=== PATIENT | male | born 1965 | race Caucasian/White ===

== ENCOUNTER 2018-08-22 15:44 | Outpatient (CLI) | payer OTHER ==
[2018-08-22 16:32] LABS: BASOPHILS % (AUTO) 0.3 % (0-1); EOSINOPHILS # (AUTO) 0.3 X10'3 (0-0.9); EOSINOPHILS % (AUTO) 4.7 % (0-6); HEMATOCRIT 46.2 % (42.0-52.0); HEMOGLOBIN 15.4 g/dl (14.0-17.9); LYMPHOCYTES # (AUTO) 1.9 X10'3 (1.1-4.8); LYMPHOCYTES % (AUTO) 26.1 % (21-51); MEAN CORPUSCULAR HEMOGLOBIN 27.5 PG (27.0-31.0); MEAN CORPUSCULAR HGB CONC 33.5 % (33.0-36.5); MEAN CORPUSCULAR VOLUME 82.3 FL (78-98); MEAN PLATELET VOLUME 7.3 FL (7.4-10.4); MONOCYTES # (AUTO) 0.6 X10'3 (0-0.9); NEUTROPHILS # (AUTO) 4.4 X10'3 (1.8-7.7); NEUTROPHILS % (AUTO) 60.9 % (42-75); PLATELET COUNT 264 X10'3 (140-440); RED BLOOD COUNT 5.61 X10'6 (4.70-6.10); WHITE BLOOD COUNT 7.2 X10'3 (4.5-11.0)
[2018-08-22 17:00] LABS: ALANINE AMINOTRANSFERASE 51 U/L (12-78); ALBUMIN 3.9 G/DL (3.4-5.0); ALBUMIN/GLOBULIN RATIO 1.1 (1.1-1.5); ALKALINE PHOSPHATASE 67 IU/L (46-116); ANION GAP 11 (8-16); ASPARTATE AMINO TRANSFERASE 27 U/L (10-37); BILIRUBIN,TOTAL 0.5 MG/DL (0.1-1.0); BLOOD UREA NITROGEN 17 MG/DL (7-18); BUN/CREATININE RATIO 14.2 (5.4-32.0); CHLORIDE 105 MMOL/L (99-107); CHOL/HDL RATIO 3.1 (0.00-4.99); CHOLESTEROL 137 MG/DL (0-200); GLUCOSE 98 MG/DL (70-104); HDL CHOLESTEROL 44 MG/DL (35-60); LDL CHOLESTEROL 83 MG/DL (50-100); POTASSIUM 4.1 MMOL/L (3.5-5.1); SODIUM 142 MMOL/L (135-145); TOTAL CARBON DIOXIDE 26.5 MMOL/L (24-32); TOTAL PROTEIN 7.3 G/DL (6.4-8.2); TRIGLYCERIDES 80 MG/DL (20-135); eGFR 63 ML/MIN
== END 2018-08-22 23:59 | disposition home or self-care (01) ==
LOC: LAB 15:44
PROVIDERS: ATTEND Family Medicine
DX: Z00.01 Encounter for general adult medical examination with abnormal findings (principal); I10 Essential (primary) hypertension; E78.5 Hyperlipidemia, unspecified; E03.9 Hypothyroidism, unspecified; J30.9 Allergic rhinitis, unspecified; N42.9 Disorder of prostate, unspecified; Z88.9 Allergy status to unspecified drugs, medicaments and biological substances
CPT/HCPCS: 36415; 80053; 80061; 84153; 84439; 84443; 85025

== ENCOUNTER 2019-08-28 14:27 | Outpatient (CLI) | payer OTHER ==
[2019-08-28 15:34] LABS: ALANINE AMINOTRANSFERASE 55 U/L (12-78); ALBUMIN/GLOBULIN RATIO 1.1 (1.1-1.5); ALKALINE PHOSPHATASE 72 IU/L (46-116); ANION GAP 11 (8-16); ASPARTATE AMINO TRANSFERASE 31 U/L (10-37); BILIRUBIN,TOTAL 0.6 MG/DL (0.1-1.0); BLOOD UREA NITROGEN 13 MG/DL (7-18); BUN/CREATININE RATIO 13.1 (5.4-32.0); CALCIUM 8.8 MG/DL (8.5-10.1); CHLORIDE 105 MMOL/L (99-107); CHOL/HDL RATIO 2.8 (0.00-4.99); CHOLESTEROL 128 MG/DL (0-200); CREATININE 0.99 MG/DL (0.60-1.10); GLUCOSE 94 MG/DL (70-104); HDL CHOLESTEROL 45 MG/DL (35-60); LDL CHOLESTEROL 78 MG/DL (50-100); POTASSIUM 4.1 MMOL/L (3.5-5.1); SODIUM 141 MMOL/L (135-145); TOTAL CARBON DIOXIDE 24.9 MMOL/L (24-32); TOTAL PROTEIN 7.6 G/DL (6.4-8.2); TRIGLYCERIDES 55 MG/DL (20-135); eGFR 79 ML/MIN
[2019-08-30 08:09] LABS: THYROXINE (T4) 7.5 ug/dL (4.5-12.0)
[2019-08-30 13:09] LABS: PSA, ULTRASENSITIVE W/O SERIAL 0.639 ng/mL (0.000-4.000)
== END 2019-08-28 23:59 | disposition home or self-care (01) ==
LOC: LAB 14:27
PROVIDERS: ATTEND Family Medicine
DX: I10 Essential (primary) hypertension (principal); E78.5 Hyperlipidemia, unspecified; N42.9 Disorder of prostate, unspecified; E03.9 Hypothyroidism, unspecified
CPT/HCPCS: 36415; 80053; 80061; 84153; 84436; 84439; 84443

== ENCOUNTER 2019-11-19 06:34 | Outpatient (CLI) | payer OTHER | END 2019-11-19 23:59 | disposition home or self-care (01) | LOC: RAD 06:34 | PROVIDERS: ATTEND Family Medicine | DX: M17.11 Unilateral primary osteoarthritis, right knee (principal); M76.9 Unspecified enthesopathy, lower limb, excluding foot | CPT/HCPCS: 73564 ==

== ENCOUNTER 2020-09-16 15:09 | Outpatient (CLI) | payer BC ==
[2020-09-16 16:31] LABS: BASOPHILS % (AUTO) 0.4 % (0-1); EOSINOPHILS # (AUTO) 0.3 X10'3 (0-0.9); EOSINOPHILS % (AUTO) 4.5 % (0-6); HEMOGLOBIN 15.3 g/dl (14.0-17.9); LYMPHOCYTES # (AUTO) 1.6 X10'3 (1.1-4.8); LYMPHOCYTES % (AUTO) 21.1 % (21-51); MEAN CORPUSCULAR HEMOGLOBIN 28.3 PG (27.0-31.0); MEAN CORPUSCULAR HGB CONC 33.9 g/dL (33.0-36.5); MEAN CORPUSCULAR VOLUME 83.5 FL (78-98); MEAN PLATELET VOLUME 7.4 FL (7.4-10.4); MONOCYTES # (AUTO) 0.6 X10'3 (0-0.9); MONOCYTES % (AUTO) 7.8 % (2-12); NEUTROPHILS # (AUTO) 4.9 X10'3 (1.8-7.7); NEUTROPHILS % (AUTO) 66.2 % (42-75); PLATELET COUNT 247 X10'3 (140-440); RED BLOOD COUNT 5.39 X10'6 (4.70-6.10); WHITE BLOOD COUNT 7.4 X10'3 (4.5-11.0)
[2020-09-16 16:33] LABS: HEMOGLOBIN A1C 5.8 % (4.5-6.2)
[2020-09-16 16:49] LABS: ALANINE AMINOTRANSFERASE 74 U/L (12-78); ALBUMIN/GLOBULIN RATIO 1.1 (1.1-1.5); ALKALINE PHOSPHATASE 76 IU/L (46-116); ANION GAP 8 (8-16); ASPARTATE AMINO TRANSFERASE 52 U/L (10-37); BILIRUBIN,TOTAL 0.4 MG/DL (0.1-1.0); BLOOD UREA NITROGEN 20 MG/DL (7-18); BUN/CREATININE RATIO 18.3 (5.4-32.0); CALCIUM 9.1 MG/DL (8.5-10.1); CHLORIDE 109 MMOL/L (99-107); CHOL/HDL RATIO 3.9 (0.00-4.99); CHOLESTEROL 146 MG/DL (0-200); CREATININE 1.09 MG/DL (0.60-1.10); GLUCOSE 109 MG/DL (70-104); HDL CHOLESTEROL 37 MG/DL (35-60); LDL CHOLESTEROL 92 MG/DL (50-100); POTASSIUM 4.1 MMOL/L (3.5-5.1); SODIUM 143 MMOL/L (135-145); TOTAL CARBON DIOXIDE 26.5 MMOL/L (24-32); TOTAL PROTEIN 7.5 G/DL (6.4-8.2); TRIGLYCERIDES 188 MG/DL (20-135); eGFR 70 ML/MIN
== END 2020-09-16 23:59 | disposition home or self-care (01) ==
LOC: LAB 15:09
PROVIDERS: ATTEND Family Medicine
DX: Z13.1 Encounter for screening for diabetes mellitus (principal); I10 Essential (primary) hypertension; E78.5 Hyperlipidemia, unspecified; N42.9 Disorder of prostate, unspecified; E03.9 Hypothyroidism, unspecified; M23.92 Unspecified internal derangement of left knee
CPT/HCPCS: 36415; 80053; 80061; 83036; 84153; 84439; 84443; 85025

== ENCOUNTER 2020-11-11 13:44 | Outpatient (CLI) | payer BC | END 2020-11-11 23:59 | disposition home or self-care (01) | LOC: RAD 13:44 | PROVIDERS: ATTEND Family Medicine | DX: S83.242A Other tear of medial meniscus, current injury, left knee, initial encounter (principal); M17.12 Unilateral primary osteoarthritis, left knee; M71.22 Synovial cyst of popliteal space [Baker], left knee; M23.42 Loose body in knee, left knee; M25.462 Effusion, left knee; M94.262 Chondromalacia, left knee; X58.XXXA Exposure to other specified factors, initial encounter; Y93.89 Activity, other specified; Y92.89 Other specified places as the place of occurrence of the external cause; Y99.8 Other external cause status; Z88.0 Allergy status to penicillin; Z91.030 Bee allergy status; Z91.040 Latex allergy status; Z91.010 Allergy to peanuts | CPT/HCPCS: 73721 ==

== ENCOUNTER 2021-08-26 14:34 | Outpatient (CLI) | payer BC ==
[2021-08-26 15:32] LABS: ALANINE AMINOTRANSFERASE 60 U/L (12-78); ALBUMIN 4.3 G/DL (3.4-5.0); ALBUMIN/GLOBULIN RATIO 1.3 (1.1-1.5); ALKALINE PHOSPHATASE 70 IU/L (46-116); ANION GAP 10 (8-16); ASPARTATE AMINO TRANSFERASE 38 U/L (10-37); BILIRUBIN,TOTAL 0.4 MG/DL (0.1-1.0); BLOOD UREA NITROGEN 20 MG/DL (7-18); BUN/CREATININE RATIO 20.2 (5.4-32.0); CALCIUM 8.8 MG/DL (8.5-10.1); CHLORIDE 109 MMOL/L (99-107); CHOL/HDL RATIO 4.7 (0.00-4.99); CHOLESTEROL 208 MG/DL (0-200); CREATININE 0.99 MG/DL (0.60-1.10); GLUCOSE 94 MG/DL (70-104); HDL CHOLESTEROL 44 MG/DL (35-60); LDL CHOLESTEROL 139 MG/DL (50-100); POTASSIUM 4.2 MMOL/L (3.5-5.1); SODIUM 144 MMOL/L (135-145); TOTAL CARBON DIOXIDE 25.1 MMOL/L (24-32); TOTAL PROTEIN 7.7 G/DL (6.4-8.2); TRIGLYCERIDES 159 MG/DL (20-135); eGFR 78 ML/MIN
[2021-08-26 16:32] LABS: HEMOGLOBIN A1C 5.8 % (4.5-6.2)
[2021-08-29 12:13] LABS: PSA, ULTRASENSITIVE W/O SERIAL 0.563 ng/mL (0.000-4.000); THIIODOTHRONINE, FREE, SERUM 3.1 pg/mL (2.0-4.4)
== END 2021-08-26 23:59 | disposition home or self-care (01) ==
LOC: LAB 14:34
PROVIDERS: ATTEND Family Medicine
DX: E78.5 Hyperlipidemia, unspecified (principal); I10 Essential (primary) hypertension; E03.9 Hypothyroidism, unspecified; N42.9 Disorder of prostate, unspecified; R73.9 Hyperglycemia, unspecified
CPT/HCPCS: 36415; 80053; 80061; 83036; 84153; 84439; 84443; 84481

== ENCOUNTER 2021-09-29 23:09 | Inpatient (IN) | payer BC ==
[~2021-09-29] VITALS: Ht 177.8 cm; Wt 83.1 kg
[2021-09-29] MEDS ORDERED: ondansetron/PF 4mg/2ml inj IV ONE (23:30)
[2021-09-29] MEDS ORDERED: normal saline 1000ml 1,000 ML IV ONE (23:30)
[2021-09-29] MEDS ORDERED: morphine 4 MG/ML inj SYRINge IV ONE (23:30)
[2021-09-29 23:46] LABS: BASOPHILS % (AUTO) 0.2 % (0-1); EOSINOPHILS % (AUTO) 0 % (0-6); HEMATOCRIT 47.4 % (42.0-52.0); LYMPHOCYTES % (AUTO) 5.5 % (21-51); MEAN CORPUSCULAR HEMOGLOBIN 27.7 PG (27.0-31.0); MEAN CORPUSCULAR HGB CONC 33.7 g/dL (33.0-36.5); MEAN CORPUSCULAR VOLUME 82.2 FL (78-98); MEAN PLATELET VOLUME 7.2 FL (7.4-10.4); MONOCYTES # (AUTO) 1.3 X10'3 (0-0.9); MONOCYTES % (AUTO) 7.2 % (2-12); NEUTROPHILS # (AUTO) 15.6 X10'3 (1.8-7.7); NEUTROPHILS % (AUTO) 87.1 % (42-75); PLATELET COUNT 289 X10'3 (140-440); RED BLOOD COUNT 5.77 X10'6 (4.70-6.10); RED CELL DISTRIBUTION WIDTH 13.5 % (11.5-14.5); WHITE BLOOD COUNT 17.9 X10'3 (4.5-11.0)
[2021-09-29 23:57] LABS: ALANINE AMINOTRANSFERASE 41 U/L (12-78); ALBUMIN 4.3 G/DL (3.4-5.0); ALBUMIN/GLOBULIN RATIO 1.2 (1.1-1.5); ALKALINE PHOSPHATASE 66 IU/L (46-116); ANION GAP 13 (8-16); ASPARTATE AMINO TRANSFERASE 21 U/L (10-37); BILIRUBIN,DIRECT 0.1 MG/DL (0-0.3); BILIRUBIN,TOTAL 0.4 MG/DL (0.1-1.0); BLOOD UREA NITROGEN 32 MG/DL (7-18); BUN/CREATININE RATIO 25.6 (5.4-32.0); CALCIUM 9.1 MG/DL (8.5-10.1); CHLORIDE 105 MMOL/L (99-107); CREATININE 1.25 MG/DL (0.60-1.10); GLUCOSE 144 MG/DL (70-104); LIPASE 52 U/L (73-393); POTASSIUM 4.2 MMOL/L (3.5-5.1); SODIUM 141 MMOL/L (135-145); TOTAL PROTEIN 7.8 G/DL (6.4-8.2); eGFR 60 ML/MIN
[2021-09-30] VITALS (18 sets, daily range): BP systolic 115–182; BP diastolic 54–100
[2021-09-30] MEDS ORDERED: ciprofloxacin lact 400MG/200ML 200 ML IV STA (00:03)
[2021-09-30] MEDS ORDERED: metroNIDAZOLE-Flagyl 500mg/NS 100 ML IV STA (00:03)
[2021-09-30] MEDS ORDERED: diatr meglu/diatrizoate 30ml oral sol.-(3 dose) bottle PO SCH ×2 (00:30→00:39)
[2021-09-30] MEDS ORDERED: LEVO112T52 PO (00:33)
[2021-09-30] MEDS ORDERED: ASPI81TA52 PO (00:33)
[2021-09-30] MEDS ORDERED: LOSA50TA64 PO (00:33)
[2021-09-30] MEDS ORDERED: ATOR20TA66 PO (00:33)
[2021-09-30] MEDS ORDERED: morphine 4 MG/ML inj SYRINge IV ONE (00:45)
[2021-09-30] MEDS ORDERED: acetaminophen 325mg tablet PO PRN (01:05)
[2021-09-30] MEDS ORDERED: magnesium 2GM in 50ml NS 50 ML IV PRN (01:05)
[2021-09-30] MEDS ORDERED: potassium CL 10mEq/100ml bag 100 ML IV PRN (01:05)
[2021-09-30] MEDS ORDERED: magnesium 4gm in 100ml NS 100 ML IV PRN (01:05)
[2021-09-30] MEDS ORDERED: diphenhydrAMINE 50 mg/ml inj IV ONE (01:10)
[2021-09-30] MEDS: normal saline 1000ml 1,000 ML IV SCH ×3 (01:18→22:04)
[2021-09-30 01:42] LABS: MAGNESIUM 2.3 MG/DL (1.5-2.4); POTASSIUM 4.9 MMOL/L (3.5-5.1)
[2021-09-30] MEDS: diatr meglu/diatrizoate 30ml oral sol.-(3 dose) bottle PO SCH ×3 (03:17→09:23)
[2021-09-30] MEDS: morphine 2 MG/ML inj. syringe IV PRN ×2 (03:18→10:06)
--- NOTE | 2021-09-30 05:55 | NUR ---
Pt was bladder scanned had 310cc in bladder after voiding 600cc. Spoke with Dr. Min who ordered one time dose of Flomax.
[2021-09-30 06:29] LABS: CLARITY,URINE CLEAR (Clear); COLOR,URINE YELLOW (Yellow); GLUCOSE, URINE NEGATIVE (Neg); KETONES,URINE NEGATIVE (Neg); LEUKOCYTE ESTERASE ,URINE NEGATIVE (Neg); NITRITES, URINE NEGATIVE (Neg); OCCULT BLOOD,URINE NEGATIVE (Neg); PROTEIN,URINE NEGATIVE (Neg); UROBILINOGEN,URINE 0.2 E.U/dL (0.2-1.0)
[2021-09-30] MEDS ORDERED: tamsulosin 0.4mg capsule PO ONE (06:30)
[2021-09-30 06:31] LABS: UA COLLECTION TYPE VOIDED
--- NOTE | 2021-09-30 06:40 | NUR ---
Problems reprioritized. Patient report given, questions answered & plan of care reviewed with FIDELIA Horner.
[2021-09-30] MEDS: ciprofloxacin lact 400MG/200ML 200 ML IV SCH ×2 (07:23→22:04)
[2021-09-30] MEDS: K and/or MAG REPLACEMENT MC SCH ×2 (08:00→20:00)
[2021-09-30] MEDS ORDERED: levoTHYROXINE 112mcg tablet PO SCH (08:00)
[2021-09-30] MEDS: metroNIDAZOLE-Flagyl 500mg/NS 100 ML IV SCH ×2 (09:21→16:00)
[2021-09-30] MEDS ORDERED: iohexol 300mg/ml 100ml inj. ONE (09:52)
[2021-09-30 11:01] LABS: BASOPHILS % (AUTO) 0.2 % (0-1); EOSINOPHILS % (AUTO) 0 % (0-6); HEMATOCRIT 43.1 % (42.0-52.0); HEMOGLOBIN 14.5 g/dl (14.0-17.9); LYMPHOCYTES # (AUTO) 0.7 X10'3 (1.1-4.8); LYMPHOCYTES % (AUTO) 4.9 % (21-51); MEAN CORPUSCULAR HEMOGLOBIN 27.8 PG (27.0-31.0); MEAN CORPUSCULAR HGB CONC 33.7 g/dL (33.0-36.5); MEAN CORPUSCULAR VOLUME 82.4 FL (78-98); MEAN PLATELET VOLUME 7.2 FL (7.4-10.4); MONOCYTES # (AUTO) 0.8 X10'3 (0-0.9); MONOCYTES % (AUTO) 5.9 % (2-12); NEUTROPHILS # (AUTO) 12.2 X10'3 (1.8-7.7); PLATELET COUNT 247 X10'3 (140-440); RED BLOOD COUNT 5.23 X10'6 (4.70-6.10); RED CELL DISTRIBUTION WIDTH 13.7 % (11.5-14.5); WHITE BLOOD COUNT 13.7 X10'3 (4.5-11.0)
[2021-09-30 11:11] LABS: APTT 28 SECONDS (22-32)
[2021-09-30 11:19] LABS: ALANINE AMINOTRANSFERASE 38 U/L (12-78); ALBUMIN 3.4 G/DL (3.4-5.0); ALBUMIN/GLOBULIN RATIO 1.1 (1.1-1.5); ALKALINE PHOSPHATASE 47 IU/L (46-116); ANION GAP 9 (8-16); ASPARTATE AMINO TRANSFERASE 16 U/L (10-37); BLOOD UREA NITROGEN 23 MG/DL (7-18); BUN/CREATININE RATIO 21.7 (5.4-32.0); CALCIUM 8.1 MG/DL (8.5-10.1); CHLORIDE 102 MMOL/L (99-107); CREATININE 1.06 MG/DL (0.60-1.10); GLUCOSE 129 MG/DL (70-104); POTASSIUM 4.1 MMOL/L (3.5-5.1); SODIUM 136 MMOL/L (135-145); TOTAL CARBON DIOXIDE 24.7 MMOL/L (24-32); TOTAL PROTEIN 6.6 G/DL (6.4-8.2); eGFR 72 ML/MIN
--- NOTE | 2021-09-30 11:47 | NUR ---
PAGER ID: [phone] MESSAGE: Tena Brink [id number] FYI Pt has been tacky -111 this am at rest with irregular hr. Did you want on tele? Please address med re.- her afib meds on there. Siri [phone] Addendum: 09/30/21 at 1147 by Siri Wilson RN INcorrect pt.
[2021-09-30] MEDS ORDERED: midazolam 1 mg/ML 2ml injection ONE (14:05)
[2021-09-30] MEDS ORDERED: fentaNYL /PF 50mcg/ml 5ml ampule ONE (14:07)
[2021-09-30] MEDS ORDERED: famotidine/PF 10 mg/ml inj IV ONE (14:23)
[2021-09-30] MEDS ORDERED: ringers solution, lacted 1,000 ML IV SCH (14:25)
[2021-09-30] MEDS ORDERED: ondansetron/PF 4mg/2ml inj IV PRN (14:25)
[2021-09-30] MEDS ORDERED: acetaminophen 1,000mg/100ml IV 100 ML IV PRN (14:25)
[2021-09-30] MEDS ORDERED: meperidine/PF 25mg/ml syringe IV PRN ×3 (14:25)
[2021-09-30] MEDS ORDERED: proCHLORperazine 10 MG/2 ml inj IV PRN (14:25)
[2021-09-30] MEDS ORDERED: labetalol 20mg/4ml (5mg/ml) syringe IV PRN (14:25)
[2021-09-30] MEDS ORDERED: morphine 4 MG/ML inj SYRINge IV PRN (14:25)
[2021-09-30] MEDS ORDERED: hydrALAZINE 20mg/ml inj. IV PRN (14:25)
--- NOTE | 2021-09-30 14:29 | NUR ---
Pt. taken to OR while primary RN in other pt. room. Charge took BG. WNL.
[2021-09-30] MEDS ORDERED: sevoflurane 250ml liquid IH ONE (14:32)
[2021-09-30] MEDS ORDERED: propofol inj 20 ML IV ONE (15:28)
[2021-09-30] MEDS ORDERED: rocuronium 10mg/ml inj IV ONE ×3 (15:28→17:57)
[2021-09-30] MEDS ORDERED: LIDOcaine 2% (20mg/ml) 5ml vial ONE (15:28)
[2021-09-30] MEDS ORDERED: dexamethasone sod phosphate 4mg/ml inj. ONE (15:29)
[2021-09-30] MEDS ORDERED: ondansetron/PF 4mg/2ml inj ONE (15:29)
[2021-09-30] MEDS ORDERED: BUPIVAcaine/PF 2.5mg/ml (0.25%) 10ml vial ONE (15:45)
[2021-09-30] MEDS ORDERED: BUPIVACAINE liposomal/PF 13.3 MG/ML vial IM ONE (15:45)
[2021-09-30] MEDS ORDERED: morphine 10mg/ml inj. ONE ×2 (17:33→18:50)
[2021-09-30] MEDS ORDERED: phenylephrine 10mg/ml inj. ONE (17:56)
[2021-09-30] MEDS ORDERED: 0.9 % SODIUM CHLORIDE 10 ML VIAL ONE (17:57)
[2021-09-30] MEDS ORDERED: albumin (Human) 5% 250ml 250 ML IV ONE (18:10)
--- NOTE | 2021-09-30 18:23 | NUR ---
Gave report to Belinda MISTRY.
[2021-09-30] MEDS ORDERED: sugammadex 200mg/2ml injection IV ONE (18:34)
--- NOTE | 2021-09-30 19:08 | NUR ---
Received from OR via SURGICAL BED , accompanied by Anesthesiologist DR THOMPSON and report given by Anesthesiolgist. PT SLEEPY. DRSG TO ABD CDI. DEVIN DRAIN W/ SS DRAINAGE. ART LINE TO RIGHT WRIST. TRIPLE LUMEN CENTRAL LINE TO RIGHT NECK. SCDS ON. NG TUBE TO LOW INT SUCTION. VSS
--- NOTE | 2021-09-30 19:30 | NUR ---
CXR COMPLETED. ABGS DRAWN. DR ALVAREZ AT BEDSIDE. PT AROUSABLE AT THIS TIME.
[2021-09-30 19:38] LABS: ABG BASE EXCESS -6.7 mmol/L (-2.0-2.0); ABG HCO3 19.2 mmol/L (22.0-26.0); ABG OXYGEN SATURATION 94.2 % (94-97); ABG PCO2 (T) 39.7 mmHg (35.0-48.0); ABG PO2 (T) 75.6 mmHg (75.0-100.0); FCOHb 0.7 % (0.0-3.9); FMetHb 0.4 % (0.0-1.5); FO2Hb 93.2 % (94-97); TOTAL HEMOGLOBIN 15.3 G/dl (14.0-18.0)
--- NOTE | 2021-09-30 19:55 | NUR ---
PT AWAKE, DENIES PAIN AND NAUSEA. MAKES OCCASIONAL JOKES AND IS VERY THANKFUL FOR HIS CARE. ALEKSANDRA MATA, TANNER CDI. NG TO LOW INT SUCTION W/ APPROX 100 OUT SO FAR IN PACU.
--- NOTE | 2021-09-30 20:48 | NUR ---
PT TO 2014 VIA SURGICAL BED. TRANSFERRED TO ICU BED VIA SLIDE BOARD. PT TOLERATED WELL. PT REMAINS ALERT AND ORIENTED AND VSS. ABD SOFT, DRSG CDI. NG HAS APPROX 50 CC BROWN DRAINAGE. REPORT GIVEN TO ISHMAEL MISTRY. PT AT BEDSIDE, BOTH ARE SO THANKFUL FOR THEIR CARE AND STATES READINESS FOR XFER TO UNIT. PT WAS TRANSFERRED SAFELY, DENIES ANY NEEDS AT THIS TIME.
--- NOTE | 2021-09-30 20:50 | NUR ---
Received pt from OR. A&O x4, saturation 96% on room air, Surgical dressing dry and intact.
[2021-09-30] MEDS ORDERED: Chloraseptic (Phenol) Spray 177ml MM PRN (21:35)
[2021-10-01] VITALS (14 sets, daily range): BP systolic 120–154; BP diastolic 57–83
[2021-10-01] MEDS: metroNIDAZOLE-Flagyl 500mg/NS 100 ML IV SCH ×3 (00:42→16:00)
[2021-10-01] MEDS: morphine 2 MG/ML inj. syringe IV PRN ×4 (00:55→21:51)
[2021-10-01] MEDS: normal saline 1000ml 1,000 ML IV SCH ×3 (01:14→21:35)
[2021-10-01 02:52] LABS: BASOPHILS % (AUTO) 0.1 % (0-1); EOSINOPHILS % (AUTO) 0 % (0-6); HEMATOCRIT 42.8 % (42.0-52.0); HEMOGLOBIN 14.4 g/dl (14.0-17.9); LYMPHOCYTES # (AUTO) 0.6 X10'3 (1.1-4.8); MEAN CORPUSCULAR HEMOGLOBIN 27.9 PG (27.0-31.0); MEAN CORPUSCULAR HGB CONC 33.7 g/dL (33.0-36.5); MEAN CORPUSCULAR VOLUME 82.9 FL (78-98); MEAN PLATELET VOLUME 7.6 FL (7.4-10.4); MONOCYTES # (AUTO) 0.6 X10'3 (0-0.9); MONOCYTES % (AUTO) 5.3 % (2-12); NEUTROPHILS # (AUTO) 9.5 X10'3 (1.8-7.7); NEUTROPHILS % (AUTO) 88.6 % (42-75); PLATELET COUNT 203 X10'3 (140-440); RED BLOOD COUNT 5.16 X10'6 (4.70-6.10); RED CELL DISTRIBUTION WIDTH 13.7 % (11.5-14.5); WHITE BLOOD COUNT 10.7 X10'3 (4.5-11.0)
[2021-10-01 03:07] LABS: ALANINE AMINOTRANSFERASE 28 U/L (12-78); ALBUMIN 2.9 G/DL (3.4-5.0); ALKALINE PHOSPHATASE 37 IU/L (46-116); ANION GAP 11 (8-16); ASPARTATE AMINO TRANSFERASE 14 U/L (10-37); BILIRUBIN,TOTAL 0.7 MG/DL (0.1-1.0); BLOOD UREA NITROGEN 16 MG/DL (7-18); BUN/CREATININE RATIO 19.3 (5.4-32.0); CALCIUM 7.8 MG/DL (8.5-10.1); CHLORIDE 104 MMOL/L (99-107); CREATININE 0.83 MG/DL (0.60-1.10); GLUCOSE 133 MG/DL (70-104); POTASSIUM 4.3 MMOL/L (3.5-5.1); SODIUM 138 MMOL/L (135-145); TOTAL CARBON DIOXIDE 22.8 MMOL/L (24-32); TOTAL PROTEIN 5.9 G/DL (6.4-8.2); eGFR > 90 ML/MIN
--- NOTE | 2021-10-01 06:15 | NUR ---
Patient in room CICU 2013. I have received report from Jessica MISTRY and had the opportunity to ask questions and assume patient care. Pt appears comfortable and sleeping.
[2021-10-01] MEDS: K and/or MAG REPLACEMENT MC SCH ×2 (08:14→20:00)
[2021-10-01] MEDS: levoTHYROXINE sod inj. 100mcg/5 ml vial IV SCH (09:00)
[2021-10-01] MEDS: ciprofloxacin lact 400MG/200ML 200 ML IV SCH ×2 (09:34→22:20)
--- NOTE | 2021-10-01 10:16 | NUR ---
Family & daughter to see. Pain med improved his comfort level. IS provided.
--- NOTE | 2021-10-01 15:32 | NUR ---
MD Visit Dr. Vargas to see pt. Reviewed surgical procedure and said dressing could be changed & packing removed, CL out and art line off. All of those completed, pt tolerated dressing change well. Incision was well approximated, no s/s infection or drainage. 4x4s and ABDs reapplied per pt request. It makes a good pad to hold when he coughs. Art and IJ removed w/out incident & cath tips in tact on both. MS given prior to dressing change.
--- NOTE | 2021-10-01 16:30 | NUR ---
Transfer Pt transferred to [facility] with phone, cord and ear buds. and daughter accompanied us on this transfer. Urinary catheter removed prior to transfer, pt tolerated it well. Transferred in chair, on monitor. Pt requested to be left in chair on ACCE. Reported off to RN there.
--- NOTE | 2021-10-01 18:36 | NUR ---
Problems reprioritized. Patient report given, questions answered & plan of care reviewed with GISEL MISTRY.
[2021-10-01] MEDS: enoxaparin 40mg/0.4ml syringe SUBCUT SCH (21:34)
[2021-10-01] MEDS: ondansetron/PF 4mg/2ml inj IV PRN (21:35)
[2021-10-01] MEDS ORDERED: normal saline 500ml IV soln 500 ML IV ONE (22:00)
[2021-10-01] MEDS ORDERED: pantoprazole 40MG/NS 100ML BAG 100 ML IV ONE (22:05)
[2021-10-02] MEDS: metroNIDAZOLE-Flagyl 500mg/NS 100 ML IV SCH ×3 (00:57→15:34)
[2021-10-02] MEDS: morphine 2 MG/ML inj. syringe IV PRN ×3 (03:11→22:37)
[2021-10-02 05:00] VITALS: BP 131/75
[2021-10-02 06:33] LABS: ALANINE AMINOTRANSFERASE 28 U/L (12-78); ALBUMIN 2.6 G/DL (3.4-5.0); ALBUMIN/GLOBULIN RATIO 0.8 (1.1-1.5); ALKALINE PHOSPHATASE 37 IU/L (46-116); ANION GAP 9 (8-16); ASPARTATE AMINO TRANSFERASE 15 U/L (10-37); BILIRUBIN,TOTAL 0.5 MG/DL (0.1-1.0); BLOOD UREA NITROGEN 20 MG/DL (7-18); BUN/CREATININE RATIO 24.1 (5.4-32.0); CALCIUM 8.1 MG/DL (8.5-10.1); CHLORIDE 104 MMOL/L (99-107); CREATININE 0.83 MG/DL (0.60-1.10); GLUCOSE 114 MG/DL (70-104); POTASSIUM 3.8 MMOL/L (3.5-5.1); SODIUM 138 MMOL/L (135-145); TOTAL CARBON DIOXIDE 25.1 MMOL/L (24-32); TOTAL PROTEIN 5.9 G/DL (6.4-8.2); eGFR > 90 ML/MIN
[2021-10-02 07:00] VITALS: BP 143/90
[2021-10-02] MEDS: normal saline 1000ml 1,000 ML IV SCH ×2 (07:28→17:07)
[2021-10-02 07:49] LABS: BASOPHILS % (AUTO) 0.1 % (0-1); EOSINOPHILS % (AUTO) 0 % (0-6); HEMATOCRIT 40.3 % (42.0-52.0); HEMOGLOBIN 13.3 g/dl (14.0-17.9); LYMPHOCYTES # (AUTO) 0.8 X10'3 (1.1-4.8); LYMPHOCYTES % (AUTO) 7.9 % (21-51); MEAN CORPUSCULAR HEMOGLOBIN 27.9 PG (27.0-31.0); MEAN CORPUSCULAR HGB CONC 33.1 g/dL (33.0-36.5); MEAN CORPUSCULAR VOLUME 84.1 FL (78-98); MEAN PLATELET VOLUME 8.1 FL (7.4-10.4); MONOCYTES # (AUTO) 0.7 X10'3 (0-0.9); MONOCYTES % (AUTO) 6.9 % (2-12); NEUTROPHILS # (AUTO) 8.4 X10'3 (1.8-7.7); NEUTROPHILS % (AUTO) 85.1 % (42-75); PLATELET COUNT 195 X10'3 (140-440); RED BLOOD COUNT 4.79 X10'6 (4.70-6.10); RED CELL DISTRIBUTION WIDTH 13.8 % (11.5-14.5); WHITE BLOOD COUNT 9.9 X10'3 (4.5-11.0)
[2021-10-02] MEDS: K and/or MAG REPLACEMENT MC SCH ×2 (08:00→20:00)
[2021-10-02] MEDS: ciprofloxacin lact 400MG/200ML 200 ML IV SCH ×2 (08:53→22:33)
[2021-10-02] MEDS: levoTHYROXINE sod inj. 100mcg/5 ml vial IV SCH (09:23)
[2021-10-02 11:00] VITALS: BP 144/89
[2021-10-02] MEDS: enoxaparin 40mg/0.4ml syringe SUBCUT SCH (22:34)
[2021-10-02] MEDS: ondansetron/PF 4mg/2ml inj IV PRN (22:37)
[2021-10-03 02:00] VITALS: BP 141/70
[2021-10-03] MEDS: normal saline 1000ml 1,000 ML IV SCH ×2 (03:16→13:14)
[2021-10-03 07:00] VITALS: BP 154/95
--- NOTE | 2021-10-03 07:47 | NUR ---
Received report from charge machine operatorFIDELIA Jenkins regarding patient. Patient awake in bed and in no acute distress.
[2021-10-03] MEDS: K and/or MAG REPLACEMENT MC SCH ×2 (08:00→19:47)
[2021-10-03] MEDS: ciprofloxacin lact 400MG/200ML 200 ML IV SCH (08:02)
[2021-10-03] MEDS: levoTHYROXINE sod inj. 100mcg/5 ml vial IV SCH (08:03)
[2021-10-03 08:29] LABS: ALANINE AMINOTRANSFERASE 31 U/L (12-78); ALBUMIN 2.7 G/DL (3.4-5.0); ALBUMIN/GLOBULIN RATIO 0.7 (1.1-1.5); ALKALINE PHOSPHATASE 50 IU/L (46-116); ANION GAP 13 (8-16); ASPARTATE AMINO TRANSFERASE 25 U/L (10-37); BILIRUBIN,TOTAL 0.6 MG/DL (0.1-1.0); BLOOD UREA NITROGEN 20 MG/DL (7-18); BUN/CREATININE RATIO 26.7 (5.4-32.0); CALCIUM 8.3 MG/DL (8.5-10.1); CHLORIDE 107 MMOL/L (99-107); CREATININE 0.75 MG/DL (0.60-1.10); GLUCOSE 77 MG/DL (70-104); SODIUM 140 MMOL/L (135-145); TOTAL CARBON DIOXIDE 19.7 MMOL/L (24-32); TOTAL PROTEIN 6.4 G/DL (6.4-8.2); eGFR > 90 ML/MIN
[2021-10-03] MEDS: morphine 2 MG/ML inj. syringe IV PRN ×3 (09:32→20:29)
[2021-10-03 11:00] VITALS: BP 141/91
--- NOTE | 2021-10-03 11:20 | NUR ---
Orders for PICC line, TPN and dietary consult put in per Dr. Vargas.
--- NOTE | 2021-10-03 11:22 | NUR ---
Paged the PICC nurse regarding placement for a PICC line.
[2021-10-03] MEDS ORDERED: COVID-19 VACC, MRNA(PFIZER)/PF--BNT162b2 syringe IMVAC ONE (12:00)
[2021-10-03] MEDS ORDERED: magnesium 2GM in 50ml NS 50 ML IV PRN (13:35)
[2021-10-03] MEDS ORDERED: magnesium Cl slow-release 64mg tablet PO PRN (13:35)
[2021-10-03] MEDS ORDERED: Dextrose 10%-water IV solution 1,000 ML IV PRN (13:35)
[2021-10-03] MEDS ORDERED: magnesium 4gm in 100ml NS 100 ML IV PRN (13:35)
[2021-10-03] MEDS ORDERED: potassium Cl 40MEQ/1/2NS 520ml 520 ML IV PRN (13:40)
[2021-10-03] MEDS ORDERED: potassium Cl 20 mEq SR tablet PO PRN ×2 (13:40)
[2021-10-03] MEDS ORDERED: potassium CL 10mEq/100ml bag 100 ML IV PRN (13:40)
--- NOTE | 2021-10-03 13:51 | NUR ---
Initial: Pt admitted w/ increasing abd pain after meal, found to have SBO w/ peritonitis per EMR, also w/ sepsis. Pt underwent exploratory laparotomy with lysis of adhesion, sigmoid resection with primary anastomosis 09/30. Per MD, w/ persistent ileus, will need TPN. See recs below, d/w pharmacist. Pending PICC placement at this time. LBM 09/29. Will continue to monitor and adjust needs as medically indicated. Recs: 1. Continuous TPN per MD using 2:1 Clinimix-E /15 at 115ml/hr goal w/ additional 100 mL 20% intralipids to run at 8.33 mL/hr for 12 hrs/day. In total to provide 2860ml volume/day, 2159kcals, 138g AA, 414g Dex (2.19mg/kg/min GIR) 2. PALB and TG Q / 3. Daily scaled wts 4. Bowel care per MD Addendum: 10/03/21 at [address] Amended: Links added.
--- NOTE | 2021-10-03 14:53 | NUR ---
Problems reprioritized. Patient report given, questions answered & plan of care reviewed with FIDELIA Katz. Patient stable at transfer of care.
--- NOTE | 2021-10-03 14:56 | NUR ---
Patient in room MED 311. I have received report from FIDELIA Bae and had the opportunity to ask questions and assume patient care.
[2021-10-03 15:00] VITALS: BP 149/97
--- NOTE | 2021-10-03 15:09 | NUR ---
I agree with Kathia's assessment
[2021-10-03] MEDS: dextrose 5%-water 1,000 ML IV SCH (16:26)
[2021-10-03] MEDS: metroNIDAZOLE-Flagyl 500mg/NS 100 ML IV SCH (16:31)
[2021-10-03 18:00] VITALS: BP 147/98
--- NOTE | 2021-10-03 18:28 | NUR ---
Problems reprioritized. Patient report given, questions answered & plan of care reviewed with FIDELIA Bradley.
--- NOTE | 2021-10-03 18:30 | NUR ---
Patient in room MED 311. I have received report from Gianna MISTRY and had the opportunity to ask questions and assume patient care.
[2021-10-03] MEDS: enoxaparin 40mg/0.4ml syringe SUBCUT SCH (20:37)
[2021-10-03 22:15] VITALS: BP 141/89
[2021-10-04] MEDS: metroNIDAZOLE-Flagyl 500mg/NS 100 ML IV SCH ×3 (00:14→16:01)
[2021-10-04 02:00] VITALS: BP 166/95
[2021-10-04] MEDS: dextrose 5%-water 1,000 ML IV SCH ×3 (02:00→21:26)
[2021-10-04] MEDS: morphine 2 MG/ML inj. syringe IV PRN ×4 (02:51→20:59)
[2021-10-04] MEDS ORDERED: normal saline 500ml IV soln 500 ML IV ONE (05:45)
[2021-10-04 06:18] LABS: BASOPHILS % (AUTO) 0.2 % (0-1); EOSINOPHILS # (AUTO) 0.1 X10'3 (0-0.9); EOSINOPHILS % (AUTO) 0.5 % (0-6); HEMOGLOBIN 14.4 g/dl (14.0-17.9); LYMPHOCYTES # (AUTO) 1.2 X10'3 (1.1-4.8); LYMPHOCYTES % (AUTO) 11.2 % (21-51); MEAN CORPUSCULAR HEMOGLOBIN 27.8 PG (27.0-31.0); MEAN CORPUSCULAR HGB CONC 33.4 g/dL (33.0-36.5); MEAN CORPUSCULAR VOLUME 83.2 FL (78-98); MEAN PLATELET VOLUME 7.2 FL (7.4-10.4); MONOCYTES # (AUTO) 1.1 X10'3 (0-0.9); MONOCYTES % (AUTO) 9.9 % (2-12); NEUTROPHILS # (AUTO) 8.4 X10'3 (1.8-7.7); NEUTROPHILS % (AUTO) 78.2 % (42-75); PLATELET COUNT 260 X10'3 (140-440); RED BLOOD COUNT 5.17 X10'6 (4.70-6.10); RED CELL DISTRIBUTION WIDTH 13.3 % (11.5-14.5); WHITE BLOOD COUNT 10.7 X10'3 (4.5-11.0)
[2021-10-04 06:27] LABS: ALANINE AMINOTRANSFERASE 37 U/L (12-78); ALBUMIN 2.6 G/DL (3.4-5.0); ALBUMIN/GLOBULIN RATIO 0.7 (1.1-1.5); ALKALINE PHOSPHATASE 47 IU/L (46-116); ANION GAP 7 (8-16); ASPARTATE AMINO TRANSFERASE 27 U/L (10-37); BILIRUBIN,TOTAL 0.7 MG/DL (0.1-1.0); BLOOD UREA NITROGEN 18 MG/DL (7-18); BUN/CREATININE RATIO 23.1 (5.4-32.0); CALCIUM 8.4 MG/DL (8.5-10.1); CHLORIDE 104 MMOL/L (99-107); CREATININE 0.78 MG/DL (0.60-1.10); GLUCOSE 116 MG/DL (70-104); MAGNESIUM 2.3 MG/DL (1.5-2.4); PHOSPHORUS 2.9 MG/DL (2.3-4.5); POTASSIUM 3.5 MMOL/L (3.5-5.1); PREALBUMIN 20.2 MG/DL (19-36); SODIUM 137 MMOL/L (135-145); TOTAL CARBON DIOXIDE 26.3 MMOL/L (24-32); TOTAL PROTEIN 6.2 G/DL (6.4-8.2); TRIGLYCERIDES 102 MG/DL (20-135); eGFR > 90 ML/MIN
--- NOTE | 2021-10-04 06:39 | NUR ---
Problems reprioritized. Patient report given, questions answered & plan of care reviewed with Nilam MISTRY.
--- NOTE | 2021-10-04 06:55 | NUR ---
Patient in room MED 311. I have received report from FIDELIA ALTAMIRANO and had the opportunity to ask questions and assume patient care.
[2021-10-04] MEDS: K and/or MAG REPLACEMENT MC SCH ×2 (07:08→20:00)
[2021-10-04] MEDS: levoTHYROXINE sod inj. 100mcg/5 ml vial IV SCH (07:44)
[2021-10-04] MEDS: levoFLOXACIN-Levaquin 500mg/D5 100 ML IV SCH (07:55)
[2021-10-04 08:00] VITALS: BP 159/95
[2021-10-04] MEDS ORDERED: Dextrose 10%-water IV solution 1,000 ML IV PRN (13:30)
--- NOTE | 2021-10-04 13:35 | NUR ---
TPN consult: PICC placed, see recs below, have been d/w pharmacist. Addendum: 10/04/21 at [address] Amended: Links added.
--- NOTE | 2021-10-04 14:10 | NUR ---
TPN consult: TC from Pharmacist stating that no lipids w/ TPN at this time d/t potential allergic reaction. Updated recs below. Recs: 1. Continuous TPN per MD using 2:1 Clinimix-E 02/24 at 110ml/hr goal w/ no additional lipids per MD. In total to provide 2640ml volume/day, 2323kcals, 132g AA, 528g Dex (4.20 mg/kg/min GIR) 2. PALB and TG Q / 3. Daily scaled wts 4. Bowel care per MD Addendum: 10/04/21 at [address] Amended: Links added.
[2021-10-04 18:00] VITALS: BP 142/78
--- NOTE | 2021-10-04 18:31 | NUR ---
Problems reprioritized. Patient report given, questions answered & plan of care reviewed with FIDELIA NAJERA.
[2021-10-04] MEDS ORDERED: ZINC/COPPER/MANGANESE/SELENIUM 0.5 ML, chromic chloride inj. 5 MCG in AA 5%/cal/electro... IV SCH (19:00)
[2021-10-04] MEDS ORDERED: ZINC/COPPER/MANGANESE/SELENIUM 0.5 ML, chromic chloride inj. 5 MCG in AA 5%/CALCIUM/LYT... IV SCH (19:00)
[2021-10-04] MEDS: enoxaparin 40mg/0.4ml syringe SUBCUT SCH (20:00)
[2021-10-04 22:00] VITALS: BP 156/87
[2021-10-05] MEDS: metoclopramide 5 mg/ml inj IV SCH ×4 (05:31→20:27)
[2021-10-05] MEDS: metroNIDAZOLE-Flagyl 500mg/NS 100 ML IV SCH ×4 (05:42→23:44)
--- NOTE | 2021-10-05 06:48 | NUR ---
Problems reprioritized. Patient report given, questions answered & plan of care reviewed with
[2021-10-05] MEDS: K and/or MAG REPLACEMENT MC SCH ×2 (08:00→20:00)
[2021-10-05] MEDS: morphine 2 MG/ML inj. syringe IV PRN ×2 (09:10→21:17)
[2021-10-05] MEDS: levoTHYROXINE sod inj. 100mcg/5 ml vial IV SCH (09:13)
[2021-10-05] MEDS: dextrose 5%-water 1,000 ML IV SCH (09:29)
[2021-10-05] MEDS: levoFLOXACIN-Levaquin 500mg/D5 100 ML IV SCH (10:36)
[2021-10-05 11:00] VITALS: BP 128/82
[2021-10-05 11:26] LABS: ALANINE AMINOTRANSFERASE 57 U/L (12-78); ALBUMIN/GLOBULIN RATIO 0.9 (1.1-1.5); ALKALINE PHOSPHATASE 58 IU/L (46-116); ANION GAP 10 (8-16); ASPARTATE AMINO TRANSFERASE 40 U/L (10-37); BILIRUBIN,TOTAL 0.7 MG/DL (0.1-1.0); BLOOD UREA NITROGEN 20 MG/DL (7-18); BUN/CREATININE RATIO 23.3 (5.4-32.0); CHLORIDE 101 MMOL/L (99-107); CREATININE 0.86 MG/DL (0.60-1.10); GLUCOSE 124 MG/DL (70-104); MAGNESIUM 2.3 MG/DL (1.5-2.4); PHOSPHORUS 3.2 MG/DL (2.3-4.5); SODIUM 137 MMOL/L (135-145); TOTAL CARBON DIOXIDE 25.8 MMOL/L (24-32); TOTAL PROTEIN 6.4 G/DL (6.4-8.2); eGFR > 90 ML/MIN
[2021-10-05 11:32] LABS: POTASSIUM 3.3 MMOL/L (3.5-5.1)
--- NOTE | 2021-10-05 11:32 | NUR ---
Reassessment: Pt has been started on TPN and is advancing to goal rate per protocol. Per MD note, pt has not passed gas yet, to be started on reglan. NGT in place on low/intermittent suction w/ 400ml brown output 10/04 per EMR. LBM 09/29. Will continue to monitor and adjust needs as medically indicated. Recs: 1. Continuous TPN per MD using 2:1 Clinimix-E 02/24 at 110ml/hr goal w/ no additional lipids per MD. In total to provide 2640ml volume/day, 2323kcals, 132g AA, 528g Dex (4.20 mg/kg/min GIR) 2. PALB and TG Q 3. Daily scaled wts 4. Bowel care per MD Addendum: 10/05/21 at [address] Amended: Links added.
[2021-10-05 12:23] LABS: BASOPHILS % (AUTO) 0.3 % (0-1); EOSINOPHILS # (AUTO) 0.1 X10'3 (0-0.9); EOSINOPHILS % (AUTO) 1.2 % (0-6); HEMATOCRIT 41.6 % (42.0-52.0); LYMPHOCYTES # (AUTO) 1.4 X10'3 (1.1-4.8); LYMPHOCYTES % (AUTO) 13.2 % (21-51); MEAN CORPUSCULAR HEMOGLOBIN 27.8 PG (27.0-31.0); MEAN CORPUSCULAR HGB CONC 31.4 g/dL (33.0-36.5); MEAN PLATELET VOLUME 8.5 FL (7.4-10.4); MONOCYTES % (AUTO) 9.5 % (2-12); NEUTROPHILS # (AUTO) 7.9 X10'3 (1.8-7.7); NEUTROPHILS % (AUTO) 75.8 % (42-75); PLATELET COUNT 211 X10'3 (140-440); RED BLOOD COUNT 4.69 X10'6 (4.70-6.10); RED CELL DISTRIBUTION WIDTH 14.6 % (11.5-14.5); WHITE BLOOD COUNT 10.4 X10'3 (4.5-11.0)
[2021-10-05] MEDS: potassium Cl 20mEq/100mL bag 100 ML IV PRN ×2 (12:53→14:08)
--- NOTE | 2021-10-05 12:57 | NUR ---
Clinimax changed from 30ml to 110ml per protocol.
[2021-10-05] MEDS ORDERED: dextrose 50%-water 50ml dispensing syringe IV PRN ×2 (13:55)
[2021-10-05] MEDS ORDERED: glucagon, human recombinant 1mg kit SUBCUT PRN (13:55)
[2021-10-05] MEDS ORDERED: MESSAGE TO PHARMACY PO ONE (13:55)
[2021-10-05] MEDS ORDERED: insulin regular, human U-100 3ml vial - multi-dose SQ SCH (13:55)
--- NOTE | 2021-10-05 14:00 | NUR ---
Per pharmacist - there is NO latex in humulin - ok to add per protocol.
[2021-10-05] MEDS: normal saline 1000ml 1,000 ML IV SCH (14:10)
[2021-10-05 15:00] VITALS: BP 129/87
[2021-10-05] MEDS: ZINC/COPPER/MANGANESE/SELENIUM 0.5 ML, chromic chloride inj. 5 MCG in AA 5%/CALCIUM/LYT... IV SCH (17:46)
--- NOTE | 2021-10-05 18:20 | NUR ---
Patient in room MED 311. I have received report from FIDELIA Perez and had the opportunity to ask questions and assume patient care. Rn states just checked pt and sleeping rr wnl. Addendum: 10/05/21 at 1914 by Andrew Rojo RN Amended: Links added.
[2021-10-05 18:30] VITALS: BP 147/91
--- NOTE | 2021-10-05 18:40 | NUR ---
Problems reprioritized. Patient report given, questions answered & plan of care reviewed with FIDELIA Trevino.
[2021-10-05] MEDS: enoxaparin 40mg/0.4ml syringe SUBCUT SCH (20:27)
[2021-10-05 23:48] VITALS: BP 148/94
[2021-10-06] VITALS (7 sets, daily range): BP systolic 113–153; BP diastolic 79–90
[2021-10-06] MEDS: ZINC/COPPER/MANGANESE/SELENIUM 0.5 ML, chromic chloride inj. 5 MCG in AA 5%/CALCIUM/LYT... IV SCH ×4 (03:18→21:25)
[2021-10-06] MEDS: metoclopramide 5 mg/ml inj IV SCH ×4 (03:18→20:09)
[2021-10-06] MEDS: morphine 2 MG/ML inj. syringe IV PRN ×2 (03:36→22:17)
[2021-10-06 04:05] LABS: MAGNESIUM 2.2 MG/DL (1.5-2.4); PHOSPHORUS 2.9 MG/DL (2.3-4.5); PREALBUMIN 25.9 MG/DL (19-36); TRIGLYCERIDES 82 MG/DL (20-135)
[2021-10-06 05:33] LABS: BASOPHILS % (AUTO) 0.4 % (0-1); EOSINOPHILS # (AUTO) 0.1 X10'3 (0-0.9); EOSINOPHILS % (AUTO) 1.1 % (0-6); HEMATOCRIT 42.7 % (42.0-52.0); HEMOGLOBIN 14.5 g/dl (14.0-17.9); LYMPHOCYTES # (AUTO) 1.5 X10'3 (1.1-4.8); LYMPHOCYTES % (AUTO) 13.2 % (21-51); MEAN CORPUSCULAR HEMOGLOBIN 27.9 PG (27.0-31.0); MEAN CORPUSCULAR HGB CONC 33.9 g/dL (33.0-36.5); MEAN CORPUSCULAR VOLUME 82.4 FL (78-98); MEAN PLATELET VOLUME 7.4 FL (7.4-10.4); MONOCYTES # (AUTO) 1.4 X10'3 (0-0.9); MONOCYTES % (AUTO) 12.7 % (2-12); NEUTROPHILS # (AUTO) 8.2 X10'3 (1.8-7.7); NEUTROPHILS % (AUTO) 72.6 % (42-75); PLATELET COUNT 269 X10'3 (140-440); RED BLOOD COUNT 5.18 X10'6 (4.70-6.10); RED CELL DISTRIBUTION WIDTH 13.6 % (11.5-14.5); WHITE BLOOD COUNT 11.3 X10'3 (4.5-11.0)
--- NOTE | 2021-10-06 06:15 | NUR ---
Problems reprioritized. Patient report given, questions answered & plan of care reviewed with FIDELIA Perez. Addendum: 10/06/21 at 0621 by Andrew Rojo RN Amended: Links added.
[2021-10-06] MEDS: K and/or MAG REPLACEMENT MC SCH ×2 (08:00→20:00)
[2021-10-06] MEDS: levoTHYROXINE sod inj. 100mcg/5 ml vial IV SCH (08:11)
[2021-10-06] MEDS: metroNIDAZOLE-Flagyl 500mg/NS 100 ML IV SCH ×2 (08:12→15:40)
[2021-10-06 09:02] LABS: ALANINE AMINOTRANSFERASE 58 U/L (12-78); ALBUMIN 2.7 G/DL (3.4-5.0); ALBUMIN/GLOBULIN RATIO 0.7 (1.1-1.5); ALKALINE PHOSPHATASE 52 IU/L (46-116); ANION GAP 13 (8-16); ASPARTATE AMINO TRANSFERASE 28 U/L (10-37); BILIRUBIN,TOTAL 0.5 MG/DL (0.1-1.0); BLOOD UREA NITROGEN 18 MG/DL (7-18); BUN/CREATININE RATIO 23.4 (5.4-32.0); CALCIUM 8.5 MG/DL (8.5-10.1); CHLORIDE 105 MMOL/L (99-107); CREATININE 0.77 MG/DL (0.60-1.10); GLUCOSE 79 MG/DL (70-104); POTASSIUM 3.8 MMOL/L (3.5-5.1); SODIUM 141 MMOL/L (135-145); TOTAL CARBON DIOXIDE 23.5 MMOL/L (24-32); TOTAL PROTEIN 6.4 G/DL (6.4-8.2); eGFR > 90 ML/MIN
[2021-10-06] MEDS: levoFLOXACIN-Levaquin 500mg/D5 100 ML IV SCH (09:16)
[2021-10-06 12:58] LABS: MEAN CORPUSCULAR VOLUME 83.9 FL (78-98)
--- NOTE | 2021-10-06 17:56 | NUR ---
reposition throughout shift Pt repositions self. He is able to make his needs be known. Call light and personal belongings within reach.
--- NOTE | 2021-10-06 18:00 | NUR ---
Patient in room MED 311. I have received report from LEE MISTRY and had the opportunity to ask questions and assume patient care.
--- NOTE | 2021-10-06 18:39 | NUR ---
Problems reprioritized. Patient report given, questions answered & plan of care reviewed with FIDELIA Ernandez.
[2021-10-06] MEDS ORDERED: lactobacillus rhamnosus 10,000 MMU CELLS/CAPSULE PO SCH (20:00)
[2021-10-06] MEDS: enoxaparin 40mg/0.4ml syringe SUBCUT SCH (20:10)
[2021-10-06] MEDS ORDERED: IOHEXOL 12MG/ML oral solution 500 ML BOTTLE PO ONE (21:40)
[2021-10-06] MEDS: diatr meglu/diatrizoate 30ml oral sol.-(3 dose) bottle PO SCH (22:09)
[2021-10-07] MEDS ORDERED: diatr meglu/diatrizoate 30ml oral sol.-(3 dose) bottle PO SCH
[2021-10-07] MEDS: metroNIDAZOLE-Flagyl 500mg/NS 100 ML IV SCH ×4 (00:03→23:30)
[2021-10-07 02:00] VITALS: BP 136/81
[2021-10-07] MEDS: metoclopramide 5 mg/ml inj IV SCH ×4 (02:19→20:00)
--- NOTE | 2021-10-07 05:01 | NUR ---
PER PHARMACY, TPN REPLACEMENT BAG NOT AVAILABLE UNTIL DAY SHIPMENT ARRIVES-BAG LOW, HAD MSG'D PHARMACY FOR REPLACEMENT. WILL INFORM DAY SHIFT RN, PATIENT ALSO INFORMED THAT TPN WILL BE REPLACED SOON IT IS AVAILABLE. RANDI MISTRY
[2021-10-07 06:00] VITALS: BP 141/86
--- NOTE | 2021-10-07 07:07 | NUR ---
Problems reprioritized. Patient report given, questions answered & plan of care reviewed with IAN MISTRY.
[2021-10-07] MEDS: diatr meglu/diatrizoate 30ml oral sol.-(3 dose) bottle PO SCH ×2 (07:14→10:00)
[2021-10-07] MEDS: levoTHYROXINE sod inj. 100mcg/5 ml vial IV SCH (07:15)
[2021-10-07 07:27] LABS: BLOOD UREA NITROGEN 16 MG/DL (7-18); CREATININE 0.71 MG/DL (0.60-1.10); MAGNESIUM 2.2 MG/DL (1.5-2.4); PHOSPHORUS 2.6 MG/DL (2.3-4.5); eGFR > 90 ML/MIN
[2021-10-07] MEDS: K and/or MAG REPLACEMENT MC SCH ×2 (08:00→20:00)
[2021-10-07] MEDS: ZINC/COPPER/MANGANESE/SELENIUM 0.5 ML, chromic chloride inj. 5 MCG in AA 5%/CALCIUM/LYT... IV SCH ×2 (09:07→18:28)
[2021-10-07] MEDS: levoFLOXACIN-Levaquin 500mg/D5 100 ML IV SCH (09:07)
[2021-10-07 10:00] VITALS: BP 160/92
[2021-10-07] MEDS ORDERED: MVI, adult No.4 with vit. K 10 ML in dextrose 5% water 500ml 500 ML IV SCH ×2 (10:00)
--- NOTE | 2021-10-07 10:01 | NUR ---
Gave 3rd and final 10ml of gastrografin per angio. CT of abd at 1015
[2021-10-07] MEDS ORDERED: iohexol 300mg/ml 100ml inj. ONE (10:12)
[2021-10-07 15:00] VITALS: BP 140/83
--- NOTE | 2021-10-07 17:58 | NUR ---
Patient in room MED 319. I have received report from LEE MISTRY and had the opportunity to ask questions and assume patient care.
--- NOTE | 2021-10-07 17:59 | NUR ---
Pt has ambulated in the hallway with family throughout shift. He is passing gas, bowel sounds hypoactive - MD aware.
[2021-10-07 18:00] VITALS: BP 139/80
--- NOTE | 2021-10-07 18:00 | NUR ---
reposition throughout shift Pt repositions self. He is able to make his needs be known. Call light and personal belongings within reach.
--- NOTE | 2021-10-07 18:30 | NUR ---
banana bag 1000 banana bag was hung late d/t patient off floor for procedure.
--- NOTE | 2021-10-07 19:18 | NUR ---
Problems reprioritized. Patient report given, questions answered & plan of care reviewed with FIDELIA Ernandez.
[2021-10-07] MEDS: normal saline 1000ml 1,000 ML IV SCH (20:00)
[2021-10-07] MEDS: enoxaparin 40mg/0.4ml syringe SUBCUT SCH (20:00)
[2021-10-07 22:00] VITALS: BP 142/84
--- NOTE | 2021-10-08 01:33 | NUR ---
PATIENT REPORTS LARGE SOFT BOWEL MOVEMENT, BOWEL SOUNDS ACTIVE. RANDI RN
[2021-10-08] MEDS: metoclopramide 5 mg/ml inj IV SCH ×4 (01:45→20:21)
[2021-10-08 02:00] VITALS: BP 142/76
[2021-10-08 04:19] LABS: ALANINE AMINOTRANSFERASE 56 U/L (12-78); ALBUMIN 2.5 G/DL (3.4-5.0); ALBUMIN/GLOBULIN RATIO 0.7 (1.1-1.5); ALKALINE PHOSPHATASE 53 IU/L (46-116); ANION GAP 7 (8-16); ASPARTATE AMINO TRANSFERASE 27 U/L (10-37); BILIRUBIN,TOTAL 0.4 MG/DL (0.1-1.0); BLOOD UREA NITROGEN 19 MG/DL (7-18); BUN/CREATININE RATIO 25.7 (5.4-32.0); CALCIUM 7.9 MG/DL (8.5-10.1); CHLORIDE 101 MMOL/L (99-107); CREATININE 0.74 MG/DL (0.60-1.10); GLUCOSE 127 MG/DL (70-104); MAGNESIUM 2.1 MG/DL (1.5-2.4); PHOSPHORUS 2.9 MG/DL (2.3-4.5); POTASSIUM 3.4 MMOL/L (3.5-5.1); SODIUM 137 MMOL/L (135-145); TOTAL PROTEIN 5.9 G/DL (6.4-8.2); eGFR > 90 ML/MIN
[2021-10-08 06:00] VITALS: BP 135/85
--- NOTE | 2021-10-08 06:37 | NUR ---
Problems reprioritized. Patient report given, questions answered & plan of care reviewed with CONCEPCION MISTRY.
[2021-10-08] MEDS: K and/or MAG REPLACEMENT MC SCH ×2 (08:00→20:00)
[2021-10-08] MEDS: metroNIDAZOLE-Flagyl 500mg/NS 100 ML IV SCH ×3 (08:43→23:08)
[2021-10-08 10:00] VITALS: BP 128/79
[2021-10-08] MEDS: levoFLOXACIN-Levaquin 500mg/D5 100 ML IV SCH (10:15)
[2021-10-08] MEDS: levoTHYROXINE sod inj. 100mcg/5 ml vial IV SCH (10:20)
[2021-10-08] MEDS: potassium Cl 20mEq/100mL bag 100 ML IV PRN ×2 (12:03→14:14)
--- NOTE | 2021-10-08 12:04 | NUR ---
Reassessment: Pt remains NPO with TPN for sole source of nutrition. Pt with 750 mL output from NGT 10/07 per I&O. Per merchandise execution leader pt reports a large soft BM early this morning with active bowel sounds, first BM since admit. Given improving gut function recommend advancing to low fiber diet and weaning TPN with physician approval. Will continue to follow closely. Recommendations: 1. Advance to low fiber diet as medically indicated 2. Continuous TPN per MD using 2:1 Clinimix-E 02/24 at 110 ml/hr goal with no additional lipids per MD. In total to provide 2640 ml volume/day, 2323 kcal, 132 g AA, and 528 g Dex (4.23 mg/kg/min GIR) 3. PALB and TG q Sunday/ 4. Daily scaled wts 5. Routine prokinetic agent per MD Addendum: 10/08/21 at [address] Amended: Links added.
[2021-10-08] MEDS: ZINC/COPPER/MANGANESE/SELENIUM 0.5 ML, chromic chloride inj. 5 MCG in AA 5%/CALCIUM/LYT... IV SCH ×3 (12:10→21:26)
[2021-10-08 15:00] VITALS: BP 144/88
[2021-10-08 18:00] VITALS: BP 129/83
--- NOTE | 2021-10-08 18:34 | NUR ---
Problems reprioritized. Patient report given, questions answered & plan of care reviewed with FIDELIA CAMARA.
[2021-10-08] MEDS: enoxaparin 40mg/0.4ml syringe SUBCUT SCH (20:23)
[2021-10-08 22:00] VITALS: BP 137/83
[2021-10-08] MEDS: morphine 2 MG/ML inj. syringe IV PRN (23:05)
[2021-10-09] MEDS: morphine 2 MG/ML inj. syringe IV PRN (01:57)
[2021-10-09] MEDS: metoclopramide 5 mg/ml inj IV SCH ×4 (01:57→20:13)
[2021-10-09 02:00] VITALS: BP 133/81
[2021-10-09 03:02] LABS: BASOPHILS % (AUTO) 0 % (0-1); EOSINOPHILS # (AUTO) 0.2 X10'3 (0-0.9); EOSINOPHILS % (AUTO) 2.2 % (0-6); LYMPHOCYTES % (AUTO) 13.3 % (21-51); MEAN CORPUSCULAR HEMOGLOBIN 28.3 PG (27.0-31.0); MEAN CORPUSCULAR HGB CONC 25.6 g/dL (33.0-36.5); MEAN CORPUSCULAR VOLUME 110.6 FL (78-98); MEAN PLATELET VOLUME 8.1 FL (7.4-10.4); MONOCYTES # (AUTO) 0.7 X10'3 (0-0.9); MONOCYTES % (AUTO) 9.5 % (2-12); NEUTROPHILS # (AUTO) 5.7 X10'3 (1.8-7.7); PLATELET COUNT 233 X10'3 (140-440); RED BLOOD COUNT 3.89 X10'6 (4.70-6.10); RED CELL DISTRIBUTION WIDTH 15.7 % (11.5-14.5); WHITE BLOOD COUNT 7.6 X10'3 (4.5-11.0)
[2021-10-09] MEDS: potassium Cl 20mEq/100mL bag 100 ML IV PRN ×2 (04:51→06:46)
[2021-10-09 06:00] VITALS: BP 134/80
--- NOTE | 2021-10-09 06:18 | NUR ---
Problems reprioritized. Patient report given, questions answered & plan of care reviewed with CONCEPCION MISTRY.
[2021-10-09] MEDS: ZINC/COPPER/MANGANESE/SELENIUM 0.5 ML, chromic chloride inj. 5 MCG in AA 5%/CALCIUM/LYT... IV SCH ×3 (06:45→22:17)
--- NOTE | 2021-10-09 07:13 | NUR ---
Patient in room MED 319. I have received report from FIDELIA CAMARA, and had the opportunity to ask questions and assume patient care.
[2021-10-09] MEDS: K and/or MAG REPLACEMENT MC SCH ×2 (08:00→20:04)
[2021-10-09] MEDS: levoTHYROXINE sod inj. 100mcg/5 ml vial IV SCH (08:17)
[2021-10-09] MEDS: metroNIDAZOLE-Flagyl 500mg/NS 100 ML IV SCH ×3 (08:22→23:39)
[2021-10-09] MEDS: levoFLOXACIN-Levaquin 500mg/D5 100 ML IV SCH (10:00)
[2021-10-09] MEDS: normal saline 1000ml 1,000 ML IV SCH (14:10)
[2021-10-09 18:00] VITALS: BP 123/80
--- NOTE | 2021-10-09 19:28 | NUR ---
Problems reprioritized. Patient report given, questions answered & plan of care reviewed with FIDELIA AWAD.
[2021-10-09] MEDS: enoxaparin 40mg/0.4ml syringe SUBCUT SCH (20:12)
[2021-10-09 22:00] VITALS: BP 141/90
[2021-10-10] MEDS: metoclopramide 5 mg/ml inj IV SCH ×3 (01:50→14:00)
[2021-10-10 02:00] VITALS: BP 132/75
[2021-10-10 06:00] VITALS: BP 128/86
[2021-10-10 07:07] LABS: ALANINE AMINOTRANSFERASE 45 U/L (12-78); ALBUMIN 3.1 G/DL (3.4-5.0); ALBUMIN/GLOBULIN RATIO 0.8 (1.1-1.5); ALKALINE PHOSPHATASE 63 IU/L (46-116); ANION GAP 8 (8-16); ASPARTATE AMINO TRANSFERASE 21 U/L (10-37); BILIRUBIN,TOTAL 0.6 MG/DL (0.1-1.0); BLOOD UREA NITROGEN 19 MG/DL (7-18); BUN/CREATININE RATIO 22.4 (5.4-32.0); CALCIUM 6.6 MG/DL (8.5-10.1); CHLORIDE 104 MMOL/L (99-107); CREATININE 0.85 MG/DL (0.60-1.10); GLUCOSE 83 MG/DL (70-104); MAGNESIUM 2.3 MG/DL (1.5-2.4); PHOSPHORUS 3.4 MG/DL (2.3-4.5); POTASSIUM 5.9 MMOL/L (3.5-5.1); SODIUM 138 MMOL/L (135-145); TOTAL CARBON DIOXIDE 26.2 MMOL/L (24-32); TOTAL PROTEIN 6.9 G/DL (6.4-8.2); TRIGLYCERIDES 113 MG/DL (20-135); eGFR > 90 ML/MIN
[2021-10-10] MEDS: ZINC/COPPER/MANGANESE/SELENIUM 0.5 ML, chromic chloride inj. 5 MCG in AA 5%/CALCIUM/LYT... IV SCH (07:24)
[2021-10-10 07:26] LABS: PREALBUMIN 50.6 MG/DL (19-36)
[2021-10-10] MEDS: K and/or MAG REPLACEMENT MC SCH (08:00)
[2021-10-10] MEDS: levoFLOXACIN-Levaquin 500mg/D5 100 ML IV SCH (08:41)
[2021-10-10] MEDS: levoTHYROXINE sod inj. 100mcg/5 ml vial IV SCH (08:42)
[2021-10-10] MEDS: normal saline 1000ml 1,000 ML IV SCH (08:43)
[2021-10-10 10:00] VITALS: BP 124/89
[2021-10-10] MEDS: metroNIDAZOLE-Flagyl 500mg/NS 100 ML IV SCH (11:15)
[2021-10-10 14:00] VITALS: BP 134/82
[2021-10-10] MEDS ORDERED: LEVO500T90 PO (14:51)
[2021-10-10] MEDS ORDERED: HYDR-3965 PO (14:51)
[2021-10-10] MEDS ORDERED: METR-159 PO (14:51)
--- NOTE | 2021-10-10 16:00 | NUR ---
removed марина drain and picc line per md order. discharge instructions discussed with patient and spouse. All questions answered. Pt ambulating on own. Pt ambulated off unit with spouse to private car.
== END 2021-10-10 16:00 | disposition home or self-care (01) | DRG 853 ==
LOC: ER 23:09 → EEVIPCON 09-30 01:06 → SUR 3N 09-30 01:06 → CICU 2S 09-30 20:45 → MED 3N 10-01 17:44
PROVIDERS: ADMIT Internal Medicine; ATTEND Family Medicine
PROC: 0DTJ0ZZ Resection of Appendix, Open Approach (ICD-10-PCS; 2021-09-30)
PROC: 0DTN0ZZ Resection of Sigmoid Colon, Open Approach (ICD-10-PCS; 2021-09-30)
PROC: 0D9670Z Drainage of Stomach with Drainage Device, Via Natural or Artificial Opening (ICD-10-PCS; 2021-09-30)
PROC: BW211ZZ Computerized Tomography (CT Scan) of Abdomen and Pelvis using Low Osmolar Contrast (ICD-10-PCS; 2021-09-30)
PROC: 0DN80ZZ Release Small Intestine, Open Approach (ICD-10-PCS; principal; 2021-09-30 14:32)
PROC: 02HV33Z Insertion of Infusion Device into Superior Vena Cava, Percutaneous Approach (ICD-10-PCS; 2021-10-04)
PROC: B548ZZA Ultrasonography of Superior Vena Cava, Guidance (ICD-10-PCS; 2021-10-04)
PROC: BW211ZZ Computerized Tomography (CT Scan) of Abdomen and Pelvis using Low Osmolar Contrast (ICD-10-PCS; 2021-10-07)
DX: A41.9 Sepsis, unspecified organism (principal); K65.9 Peritonitis, unspecified; N17.0 Acute kidney failure with tubular necrosis; E46 Unspecified protein-calorie malnutrition; K56.51 Intestinal adhesions [bands], with partial obstruction; K57.92 Diverticulitis of intestine, part unspecified, without perforation or abscess without bleeding; K56.7 Ileus, unspecified; B95.4 Other streptococcus as the cause of diseases classified elsewhere; B96.20 Unspecified Escherichia coli [E. coli] as the cause of diseases classified elsewhere; Z20.822 Contact with and (suspected) exposure to COVID-19; E78.5 Hyperlipidemia, unspecified; E87.6 Hypokalemia; I10 Essential (primary) hypertension; Z91.010 Allergy to peanuts; Z91.040 Latex allergy status; Z88.0 Allergy status to penicillin; Z91.030 Bee allergy status; Z79.899 Other long term (current) drug therapy; Z79.82 Long term (current) use of aspirin; Z68.26 Body mass index [BMI] 26.0-26.9, adult
CPT/HCPCS: 36573; 96365; 96368; 96375; 99285; Z7506; Z7508; 0001A; 36415; 36600; 71045; 74176; 74177; 80048; 80053; 80076; 81003; 82565; 82803; 82948; 83605; 83690; 83735; 84100; 84132; 84134; 84145; 84478; 84520; 85018; 85025; 85610; 85730; 86885; 86900; 86901; 87070; 87075; 87076; 87077; 87081; 87185; 87186; 87635; 91300; 93005; A4215; A4618; A6253; A6407; A6449; A7000; C1751; C1758; C9113; C9290; G0378; J0744; J1100; J1200; J1650; J1956; J2250; J2270; J2274; J2370; J2405; J2704; J2765; J3010; J3480; J3490; J7030; J7040; J7060; J7070; J7120; P9045; Q9963; Q9967

== ENCOUNTER 2022-06-23 13:53 | Outpatient (CLI) | payer BC ==
[~2022-06-23 13:53] MED LIST: ATOR20TA66 PO; LEVO112T52 PO; LOSA50TA64 PO
== END 2022-06-23 23:59 | disposition home or self-care (01) ==
LOC: RAD 13:53
PROVIDERS: ATTEND Physician Assistant
DX: M17.12 Unilateral primary osteoarthritis, left knee (principal); M25.462 Effusion, left knee; M17.11 Unilateral primary osteoarthritis, right knee
CPT/HCPCS: 73564

== ENCOUNTER 2022-08-04 13:31 | Outpatient (CLI) | payer BC | END 2022-08-04 23:59 | disposition home or self-care (01) | LOC: RAD 13:31 | PROVIDERS: ATTEND Orthopaedic Surgery | DX: S83.241A Other tear of medial meniscus, current injury, right knee, initial encounter (principal); M25.461 Effusion, right knee; M17.11 Unilateral primary osteoarthritis, right knee; M70.51 Other bursitis of knee, right knee; X58.XXXA Exposure to other specified factors, initial encounter; Y93.89 Activity, other specified; Y92.89 Other specified places as the place of occurrence of the external cause; Y99.8 Other external cause status | CPT/HCPCS: 73721 ==

== ENCOUNTER 2023-06-14 10:53 | Outpatient (CLI) | payer BC ==
[~2023-06-14 10:53] MED LIST changes: +ACET325T58 PO; +LACT1CAP65 PO; +MULT-1085 PO
== END 2023-06-14 23:59 | disposition home or self-care (01) ==
LOC: RAD 10:53
PROVIDERS: ATTEND Surgery
DX: K43.9 Ventral hernia without obstruction or gangrene (principal); K46.9 Unspecified abdominal hernia without obstruction or gangrene; K44.9 Diaphragmatic hernia without obstruction or gangrene; K40.20 Bilateral inguinal hernia, without obstruction or gangrene, not specified as recurrent
CPT/HCPCS: 74176

== ENCOUNTER 2023-07-23 10:24 | Day surgery (SDC) | payer BC ==
[2023-07-19 15:20] LABS: BILIRUBIN,URINE NEGATIVE (Neg); CLARITY,URINE CLEAR (Clear); COLOR,URINE YELLOW (Yellow); GLUCOSE, URINE NEGATIVE (Neg); KETONES,URINE NEGATIVE (Neg); LEUKOCYTE ESTERASE ,URINE NEGATIVE (Neg); NITRITES, URINE NEGATIVE (Neg); OCCULT BLOOD,URINE TRACE-INTACT (Neg); PH,URINE 5.5 (4.8-8.0); PROTEIN,URINE NEGATIVE (Neg); UROBILINOGEN,URINE 0.2 E.U/dL (0.2-1.0)
[2023-07-19 15:22] LABS: BASOPHILS # (AUTO) 0.1 X10'3 (0-0.2); BASOPHILS % (AUTO) 0.5 % (0-1); EOSINOPHILS # (AUTO) 0.5 X10'3 (0-0.9); EOSINOPHILS % (AUTO) 4.4 % (0-6); LYMPHOCYTES # (AUTO) 2.4 X10'3 (1.1-4.8); LYMPHOCYTES % (AUTO) 22.7 % (21-51); MEAN CORPUSCULAR HEMOGLOBIN 27.7 PG (27.0-31.0); MEAN CORPUSCULAR VOLUME 83.8 FL (78-98); MEAN PLATELET VOLUME 6.8 FL (7.4-10.4); MONOCYTES # (AUTO) 0.8 X10'3 (0-0.9); MONOCYTES % (AUTO) 7.4 % (2-12); PRE OP HEMOGLOBIN 16.8 g/dL (14.0-17.9); PRE OP PLATELET COUNT 282 X10'3 (140-440); PRE OP WHITE BLOOD COUNT 10.8 10'3 (4.8-10.8); RED BLOOD COUNT 6.09 X10'6 (4.70-6.10); RED CELL DISTRIBUTION WIDTH 13.7 % (11.5-14.5)
[2023-07-19 15:23] LABS: UA COLLECTION TYPE CLN CATCH MIDSTREAM
[2023-07-19 15:26] LABS: HYALINE CASTS 0-3 /LPF (NEGATIVE); MUCUS STRANDS MODERATE /LPF (Neg); SQUAMOUS EPITHELIAL CELL,UR FEW /LPF (FEW)
[2023-07-19 15:27] LABS: BACTERIA,URINE FEW /HPF (Neg); RBC,URINE 0-2 /HPF (0-2); WBC,URINE 0-4 /HPF (0-4)
[2023-07-19 15:31] LABS: PRE OP PROTIME 10.3 SECONDS (9.0-12.0)
[2023-07-19 15:34] LABS: ALBUMIN 3.8 G/DL (3.4-5.0); ALBUMIN/GLOBULIN RATIO 1.1 (1.1-1.5); ALKALINE PHOSPHATASE 80 IU/L (46-116); BLOOD UREA NITROGEN 20 MG/DL (7-18); BUN/CREATININE RATIO 20.2 (10.0-20.0); CALCIUM 8.9 MG/DL (8.5-10.1); CHLORIDE 105 MMOL/L (99-107); CREATININE 0.99 MG/DL (0.60-1.10); PRE OP ALT 63 U/L (30-65); PRE OP ANION GAP 4 (8-16); PRE OP AST 31 U/L (10-37); PRE OP BILIRUB, TOTAL 0.3 MG/DL (0.0-1.0); PRE OP GLUCOSE 92 MG/DL (70-104); PRE OP POTASSIUM 4.4 MMOL/L (3.4-5.1); PRE OP SODIUM 136 MMOL/L (135-145); TOTAL CARBON DIOXIDE 26.8 MMOL/L (24-32); TOTAL PROTEIN 7.3 G/DL (6.4-8.2); eGFR 78 ML/MIN
[2023-07-19 15:43] LABS: TOTAL CELLS COUNTED 100
[2023-07-19 15:44] LABS: GIANT PLATELET FEW; PLATELET ESTIMATE NORMAL; SMUDGE CELLS FEW
[~2023-07-23] VITALS: Ht 177.8 cm; Wt 88.9 kg
[2023-07-23] VITALS (11 sets, daily range): BP systolic 135–152; BP diastolic 84–99; PULSE 62–90; RESP 13–16; TEMP 97.3; O2SAT 95–100
[~2023-07-23 10:24] MED LIST changes: +ASPI-1071 PO; -ATOR20TA66 PO; +famotidine 20mg tablet PO ONE; +ringers solution, lacted 1,000 ML IV SCH
[2023-07-23] MEDS ORDERED: clindamycin-Cleocin 900mg/D5W 50 ML IV ONE (10:50)
[2023-07-23] MEDS ORDERED: ondansetron/PF 4mg/2ml inj IV PRN ×2 (11:10→15:10)
[2023-07-23] MEDS ORDERED: morphine 2 MG/ML inj. syringe IV PRN ×2 (11:10→15:10)
[2023-07-23] MEDS ORDERED: acetaminophen 1,000mg/100ml IV 100 ML IV PRN ×2 (11:10→15:10)
[2023-07-23] MEDS ORDERED: ketorolac trometh. 30mg/ml inj. IV ONE ×2 (11:10→15:10)
[2023-07-23] MEDS ORDERED: proCHLORperazine 10 MG/2 ml inj IV PRN (11:10)
[2023-07-23] MEDS ORDERED: labetalol 20mg/4ml (5mg/ml) syringe IV PRN (11:10)
[2023-07-23] MEDS ORDERED: meperidine/PF 25mg/ml syringe IV PRN ×6 (11:10→15:10)
[2023-07-23] MEDS ORDERED: ringers solution, lacted 1,000 ML IV SCH ×2 (11:10→15:10)
[2023-07-23] MEDS ORDERED: hydrALAZINE 20mg/ml inj. IV PRN (11:10)
[2023-07-23] MEDS ORDERED: morphine 4 MG/ML inj SYRINge IV PRN ×2 (11:10→15:10)
[2023-07-23] MEDS ORDERED: BUPIVAcaine/PF 2.5 mg/ml (0.25%) 30ml vial ONE ×2 (13:41→14:11)
[2023-07-23] MEDS ORDERED: sevoflurane 250ml liquid IH ONE (14:03)
[2023-07-23] MEDS ORDERED: rocuronium 10mg/ml inj IV ONE ×2 (14:03→14:35)
[2023-07-23] MEDS ORDERED: BUPIVAcaine/PF 2.5mg/ml (0.25%) 10ml vial ONE (14:11)
[2023-07-23] MEDS ORDERED: BUPIVACAINE liposomal/PF 13.3 MG/ML vial IM ONE (14:11)
[2023-07-23] MEDS ORDERED: fentaNYL/PF 50MCG/1 ML 2ML syringe ONE (14:12)
[2023-07-23] MEDS ORDERED: midazolam 1 mg/ML 2ml injection ONE (14:12)
[2023-07-23] MEDS ORDERED: propofol inj 20 ML IV ONE (14:13)
[2023-07-23] MEDS ORDERED: dexamethasone sod phosphate 4mg/ml inj. ONE (16:01)
[2023-07-23] MEDS ORDERED: ondansetron/PF 4mg/2ml inj ONE (16:01)
[2023-07-23] MEDS ORDERED: sugammadex 200mg/2ml injection IV ONE (16:03)
[2023-07-23] MEDS ORDERED: acetaminophen 1,000mg/100ml IV 100 ML IV ONE (16:06)
--- NOTE | 2023-07-23 16:20 | NUR ---
Received from OR via , accompanied by Anesthesiologist and report given by Anesthesiolgist. PATIENT A&OX4, DENIES PAIN, V/S WNL, SCD ON , PIV 20G RUE, 4 LAP SITES TO ABDOMEN CDI
--- NOTE | 2023-07-23 17:50 | NUR ---
PATIENT A&OX4, DENIES PAIN, V/S WNL, SCD OFF , PIV 20G RUE D/C, 4 LAP SITES TO ABDOMEN CDI.DC HOME: ALL DISCHARGE CRITERIA HAS BEEN MET. VSS, PAIN AT TOLERABLE LEVEL. ABLE TO SAFELY AMBULATE AND TRANSFER SELF. IV TAKEN OUT WITHOUT ANY COMPLICATIONS. ALL DISCHARGE INSTRUCTIONS COVERED WITH PATIENT AND ALL QUESTIONS ANSWERED. PATIENT TAKEN OUT VIA WHEELCHAIR TO PERSONAL VEHICLE WHERE FAMILY/FRIEND DROVE PATIENT HOME.
== END 2023-07-23 17:50 | disposition home or self-care (01) ==
LOC: PAS 10:24
PROVIDERS: ATTEND Surgery
DX: K43.2 Incisional hernia without obstruction or gangrene (principal); I10 Essential (primary) hypertension; E03.9 Hypothyroidism, unspecified; Z79.2 Long term (current) use of antibiotics; Z79.82 Long term (current) use of aspirin; Z79.890 Hormone replacement therapy; Z79.899 Other long term (current) drug therapy; Z90.49 Acquired absence of other specified parts of digestive tract; Z96.651 Presence of right artificial knee joint; Z88.0 Allergy status to penicillin; Z91.030 Bee allergy status; Z91.040 Latex allergy status; Z91.010 Allergy to peanuts
CPT/HCPCS: 36415; 49593; 71046; 80053; 81001; 82948; 85025; 85610; 85730; 93005; C1781; C9290; J0131; J1100; J1885; J2250; J2405; J2704; J3010; J3490; J7030; J7120; S2900; Z7506; Z7508; Z7512; 85007; A4215; A4618

== ENCOUNTER 2023-07-26 14:48 | Inpatient (IN) | payer BC ==
[~2023-07-26] VITALS: Ht 177.8 cm; Wt 79.8 kg
[~2023-07-26 14:48] MED LIST changes: -famotidine 20mg tablet PO ONE; -ringers solution, lacted 1,000 ML IV SCH
[2023-07-26] MEDS ORDERED: normal saline 1000ML IV soln IVB ONE (16:55)
[2023-07-26] MEDS ORDERED: morphine 4 MG/ML inj SYRINge IV PRN (16:55)
[2023-07-26] MEDS ORDERED: metoclopramide 5 mg/ml inj IV ONE (16:55)
[2023-07-26] MEDS ORDERED: normal saline 1000ml 1,000 ML IV ONE (17:00)
[2023-07-26] MEDS: diatr meglu/diatrizoate 30ml oral sol.-(3 dose) bottle PO SCH ×3 (17:06→19:23)
[2023-07-26 17:27] LABS: BASOPHILS % (AUTO) 0.3 % (0-1); HEMOGLOBIN 14.8 g/dl (14.0-17.9); LYMPHOCYTES # (AUTO) 2.3 X10'3 (1.1-4.8); MONOCYTES # (AUTO) 0.8 X10'3 (0-0.9)
[2023-07-26 17:29] LABS: EOSINOPHILS # (AUTO) 0.1 X10'3 (0-0.9); EOSINOPHILS % (AUTO) 1.2 % (0-6); HEMATOCRIT 44.9 % (42.0-52.0); LYMPHOCYTES % (AUTO) 19.8 % (21-51); MEAN CORPUSCULAR HEMOGLOBIN 27.8 PG (27.0-31.0); MEAN CORPUSCULAR VOLUME 84.2 FL (78-98); MEAN PLATELET VOLUME 6.9 FL (7.4-10.4); MONOCYTES % (AUTO) 6.8 % (2-12); NEUTROPHILS # (AUTO) 8.4 X10'3 (1.8-7.7); NEUTROPHILS % (AUTO) 71.9 % (42-75); PLATELET COUNT 199 X10'3 (140-440); RED BLOOD COUNT 5.33 X10'6 (4.70-6.10); RED CELL DISTRIBUTION WIDTH 14.2 % (11.5-14.5); WHITE BLOOD COUNT 11.7 X10'3 (4.5-11.0)
[2023-07-26 17:42] LABS: ALANINE AMINOTRANSFERASE 46 U/L (12-78); ALBUMIN 3.6 G/DL (3.4-5.0); ALBUMIN/GLOBULIN RATIO 1.1 (1.1-1.5); ALKALINE PHOSPHATASE 61 IU/L (46-116); ANION GAP 5 (8-16); ASPARTATE AMINO TRANSFERASE 27 U/L (10-37); BILIRUBIN,TOTAL 0.8 MG/DL (0.1-1.0); BLOOD UREA NITROGEN 14 MG/DL (7-18); BUN/CREATININE RATIO 15.1 (10.0-20.0); CALCIUM 8.8 MG/DL (8.5-10.1); CHLORIDE 105 MMOL/L (99-107); CREATININE 0.93 MG/DL (0.60-1.10); GLUCOSE 84 MG/DL (70-104); POTASSIUM 3.9 MMOL/L (3.5-5.1); SODIUM 138 MMOL/L (135-145); TOTAL CARBON DIOXIDE 27.8 MMOL/L (24-32); eCRCL 89 ML/MIN; eGFR 83 ML/MIN
[2023-07-26 17:58] LABS: LIPASE 20 U/L (16-77)
[2023-07-26 17:59] LABS: BILIRUBIN,URINE NEGATIVE (Neg); CLARITY,URINE CLEAR (Clear); COLOR,URINE YELLOW (Yellow); GLUCOSE, URINE NEGATIVE (Neg); KETONES,URINE NEGATIVE (Neg); LEUKOCYTE ESTERASE ,URINE NEGATIVE (Neg); NITRITES, URINE NEGATIVE (Neg); OCCULT BLOOD,URINE NEGATIVE (Neg); PH,URINE 6.5 (4.8-8.0); PROTEIN,URINE NEGATIVE (Neg); UROBILINOGEN,URINE 0.2 E.U/dL (0.2-1.0)
[2023-07-26 18:05] LABS: UA COLLECTION TYPE NON-SPECIFIED
[2023-07-26] MEDS ORDERED: iohexol 300mg/ml 100ml inj. ONE (18:24)
[2023-07-26] MEDS ORDERED: metroNIDAZOLE-Flagyl 500mg/NS 100 ML IV STA (22:12)
[2023-07-26] MEDS ORDERED: levoFLOXACIN-Levaquin 750MG/D5 150 ML IV STA (22:12)
[2023-07-26] MEDS ORDERED: HYDROcodone/acetaminophen 10/325mg tab PO PRN (23:50)
[2023-07-26] MEDS ORDERED: ondansetron 4mg rapidly disintigrating tab PO PRN (23:50)
[2023-07-26] MEDS ORDERED: HYDROcodone/acetaminophen 5mg/325mg tablet PO PRN (23:50)
[2023-07-26] MEDS ORDERED: ondansetron/PF 4mg/2ml inj IV PRN (23:50)
[2023-07-26] MEDS ORDERED: morphine 2 MG/ML inj. syringe IV PRN ×2 (23:50)
[2023-07-26] MEDS ORDERED: acetaminophen 650mg rectal suppository RC PRN (23:50)
[2023-07-26] MEDS ORDERED: acetaminophen 325mg tablet PO PRN ×2 (23:50)
[2023-07-26] MEDS ORDERED: mag hydrox/Alum hydrox/simeth 30ml oral suspension PO PRN (23:50)
[2023-07-26] MEDS ORDERED: diphenhydrAMINE 25mg capsule PO PRN (23:50)
[2023-07-26] MEDS ORDERED: bisacodyl 10mg suppository rectal RC PRN (23:50)
[2023-07-26] MEDS ORDERED: magnesium hydroxide 30ml (MOM) UD suspension PO PRN (23:50)
[2023-07-26] MEDS ORDERED: diphenhydrAMINE 50 mg/ml inj IV PRN (23:50)
[2023-07-27] VITALS (7 sets, daily range): BP systolic 123–151; BP diastolic 84–103; PULSE 68–83; RESP 16–21; TEMP 97.3–98.5; O2SAT 94–97
[2023-07-27 00:13] LABS: HEMOGLOBIN A1C 5.8 % (4.5-6.2)
[2023-07-27 00:26] LABS: MAGNESIUM 2.5 MG/DL (1.5-2.4); PRO BRAIN NATRIURETIC PEPTIDE 89 PG/ML (0-125)
[2023-07-27] MEDS ORDERED: pantoprazole 40mg IV 80 MG in normal saline 100ml IV soln 100 ML IV ONE (00:30)
[2023-07-27 00:33] LABS: APTT 28 SECONDS (22-32); PROTHROMBIN TIME 10.3 SECONDS (9.0-12.0)
[2023-07-27] MEDS ORDERED: pantoprazole 40MG/NS 100ML BAG 100 ML IV ONE ×2 (00:40→00:55)
[2023-07-27] MEDS: normal saline 1000ml 1,000 ML IV SCH ×2 (00:47→09:50)
[2023-07-27] MEDS ORDERED: piperacillin/tazo 3.375gm/50ml 50 ML IV STA (00:48)
[2023-07-27] MEDS: ketorolac trometh. 30mg/ml inj. IV PRN ×2 (01:10→08:08)
--- NOTE | 2023-07-27 06:09 | NUR ---
Patient in room ICU 2041. I have received report from Johny MISTRY and had the opportunity to ask questions and assume patient care.
[2023-07-27 06:42] LABS: BASOPHILS % (AUTO) 0.3 % (0-1); EOSINOPHILS # (AUTO) 0.2 X10'3 (0-0.9); EOSINOPHILS % (AUTO) 2.3 % (0-6); HEMATOCRIT 42.8 % (42.0-52.0); LYMPHOCYTES # (AUTO) 1.6 X10'3 (1.1-4.8); MEAN CORPUSCULAR HEMOGLOBIN 27.5 PG (27.0-31.0); MEAN CORPUSCULAR HGB CONC 32.7 g/dL (33.0-36.5); MEAN PLATELET VOLUME 7.2 FL (7.4-10.4); MONOCYTES # (AUTO) 0.7 X10'3 (0-0.9); MONOCYTES % (AUTO) 8.6 % (2-12); NEUTROPHILS % (AUTO) 69.8 % (42-75); PLATELET COUNT 195 X10'3 (140-440); RED BLOOD COUNT 5.09 X10'6 (4.70-6.10); RED CELL DISTRIBUTION WIDTH 13.9 % (11.5-14.5); WHITE BLOOD COUNT 8.6 X10'3 (4.5-11.0)
[2023-07-27] MEDS ORDERED: levoTHYROXINE 112mcg tablet PO SCH (07:00)
[2023-07-27 07:14] LABS: ALANINE AMINOTRANSFERASE 39 U/L (12-78); ALBUMIN 3.1 G/DL (3.4-5.0); ALKALINE PHOSPHATASE 56 IU/L (46-116); ANION GAP 7 (8-16); ASPARTATE AMINO TRANSFERASE 29 U/L (10-37); BILIRUBIN,TOTAL 0.7 MG/DL (0.1-1.0); BLOOD UREA NITROGEN 15 MG/DL (7-18); BUN/CREATININE RATIO 15.8 (10.0-20.0); CALCIUM 8.4 MG/DL (8.5-10.1); CHLORIDE 105 MMOL/L (99-107); CHOL/HDL RATIO 4.5 (0.00-4.99); CHOLESTEROL 170 MG/DL (0-200); CREATINE KINASE 121 U/L (39-308); CREATININE 0.95 MG/DL (0.60-1.10); GLUCOSE 80 MG/DL (70-104); HDL CHOLESTEROL 38 MG/DL (35-60); LDL CHOLESTEROL 118 MG/DL (50-100); POTASSIUM 3.8 MMOL/L (3.5-5.1); SODIUM 138 MMOL/L (135-145); THYROID STIMULATING HORMONE 2.05 ulU/ml (0.34-4.50); TOTAL CARBON DIOXIDE 25.7 MMOL/L (24-32); TOTAL PROTEIN 6.3 G/DL (6.4-8.2); TRIGLYCERIDES 86 MG/DL (20-135); eCRCL 88 ML/MIN; eGFR 81 ML/MIN
[2023-07-27] MEDS ORDERED: docusate sod 100mg capsule PO SCH (08:00)
[2023-07-27] MEDS ORDERED: piperacillin/tazo 3.375gm/50ml 50 ML IV SCH (08:00)
[2023-07-27] MEDS ORDERED: heparin, porcine 5000 units/ml vial SQ SCH (08:00)
[2023-07-27] MEDS ORDERED: lactobacillus rhamnosus 10,000 MMU CELLS/CAPSULE PO SCH (08:00)
[2023-07-27] MEDS ORDERED: aspirin 81mg, enteric-coated 1 TAB TABLET.DR PO SCH (08:00)
[2023-07-27] MEDS ORDERED: multivitamins, therapeutics tablet PO SCH (08:00)
[2023-07-27] MEDS ORDERED: losartan 50mg tablet PO SCH (08:00)
[2023-07-27] MEDS ORDERED: METO5TAB85 PO (10:41)
--- NOTE | 2023-07-27 11:22 | NUR ---
DC order routine acknowledged, dc paper printed and given to patient.Discharge instructions discussed to patient,also instructed to follow up with as scheduled.PIV x 2 dcd.Assited on a wheelchair to the parking lot upon dc.Spouse present.
== END 2023-07-27 11:22 | disposition home or self-care (01) | DRG 394 ==
LOC: ER 14:49 → ED HOLD 23:53 → ICU 2S 07-27 00:30
PROVIDERS: ADMIT Family Medicine; ATTEND Internal Medicine
DX: K91.89 Other postprocedural complications and disorders of digestive system (principal); K56.7 Ileus, unspecified; K52.9 Noninfective gastroenteritis and colitis, unspecified; E03.9 Hypothyroidism, unspecified; K57.90 Diverticulosis of intestine, part unspecified, without perforation or abscess without bleeding; I10 Essential (primary) hypertension; K59.09 Other constipation; Y83.8 Other surgical procedures as the cause of abnormal reaction of the patient, or of later complication, without mention of misadventure at the time of the procedure; Y82.8 Other medical devices associated with adverse incidents; Z88.0 Allergy status to penicillin; Z91.030 Bee allergy status; Z91.040 Latex allergy status; Z91.010 Allergy to peanuts; Z79.82 Long term (current) use of aspirin; Z79.899 Other long term (current) drug therapy; Z90.49 Acquired absence of other specified parts of digestive tract; Y92.89 Other specified places as the place of occurrence of the external cause
CPT/HCPCS: 36415; 70450; 74177; 80053; 80061; 81003; 82550; 83036; 83605; 83690; 83735; 83880; 84100; 84443; 84484; 85025; 85610; 85730; 87081; 99285; C9113; G0378; J1885; J1956; J2270; J2765; J3490; J7030; Q9963; Q9967

== ENCOUNTER 2023-10-11 07:41 | Outpatient (CLI) | payer BC ==
[~2023-10-11 07:41] MED LIST changes: +METO5TAB85 PO
[2023-10-11 10:45] LABS: ALANINE AMINOTRANSFERASE 47 U/L (12-78); ALBUMIN 4.1 G/DL (3.4-5.0); ALBUMIN/GLOBULIN RATIO 1.1 (1.1-1.5); ALKALINE PHOSPHATASE 82 IU/L (46-116); ANION GAP 13 (8-16); ASPARTATE AMINO TRANSFERASE 31 U/L (10-37); BILIRUBIN,TOTAL 0.4 MG/DL (0.1-1.0); BLOOD UREA NITROGEN 17 MG/DL (7-18); BUN/CREATININE RATIO 16.7 (10.0-20.0); CALCIUM 8.7 MG/DL (8.5-10.1); CHLORIDE 104 MMOL/L (99-107); CHOL/HDL RATIO 5.2 (0.00-4.99); CHOLESTEROL 214 MG/DL (0-200); CREATININE 1.02 MG/DL (0.60-1.10); FREE T4 (FREE THYROXINE) 0.99 NG/DL (0.73-1.40); GLUCOSE 97 MG/DL (70-104); HDL CHOLESTEROL 41 MG/DL (35-60); LDL CHOLESTEROL 142 MG/DL (50-100); SODIUM 140 MMOL/L (135-145); THYROID STIMULATING HORMONE 0.93 ulU/ml (0.34-4.50); TOTAL CARBON DIOXIDE 23.3 MMOL/L (24-32); TRIGLYCERIDES 182 MG/DL (20-135); eGFR 75 ML/MIN
[2023-10-12 10:42] LABS: PSA, ULTRASENSITIVE W/O SERIAL 0.562 ng/mL (0.000-4.000); THIIODOTHRONINE, FREE, SERUM 3.7 pg/mL (2.0-4.4)
[2023-10-12 17:19] LABS: HEPATITIS C VIRUS ANTIBODY Non Reactive (Non Reactive)
== END 2023-10-11 23:59 | disposition home or self-care (01) ==
LOC: LAB 07:41
PROVIDERS: ATTEND Family Medicine
DX: Z11.59 Encounter for screening for other viral diseases (principal); E78.5 Hyperlipidemia, unspecified; I10 Essential (primary) hypertension; E03.9 Hypothyroidism, unspecified; N42.9 Disorder of prostate, unspecified
CPT/HCPCS: 36415; 80053; 80061; 84153; 84439; 84443; 84481; 86803; 87522

== ENCOUNTER 2024-05-23 06:53 | Day surgery (SDC) | payer BC ==
[2024-05-08 14:20] LABS: BASOPHILS % (AUTO) 0.4 % (0-1); EOSINOPHILS # (AUTO) 0.2 X10'3 (0-0.9); EOSINOPHILS % (AUTO) 2.6 % (0-6); LYMPHOCYTES # (AUTO) 2.3 X10'3 (1.1-4.8); LYMPHOCYTES % (AUTO) 25.1 % (21-51); MEAN CORPUSCULAR HEMOGLOBIN 28.3 PG (27.0-31.0); MONOCYTES # (AUTO) 0.8 X10'3 (0-0.9); MONOCYTES % (AUTO) 8.8 % (2-12); NEUTROPHILS # (AUTO) 5.7 X10'3 (1.8-7.7); NEUTROPHILS % (AUTO) 63.1 % (42-75); PRE OP HEMATOCRIT 48.8 % (42.0-52.0); PRE OP HEMOGLOBIN 16.6 g/dL (14.0-17.9); PRE OP PLATELET COUNT 263 X10'3 (140-440); RED BLOOD COUNT 5.87 X10'6 (4.70-6.10); RED CELL DISTRIBUTION WIDTH 13.9 % (11.5-14.5)
[2024-05-08 14:42] LABS: ALBUMIN 4.3 G/DL (3.4-5.0); ALBUMIN/GLOBULIN RATIO 1.2 (1.1-1.5); ALKALINE PHOSPHATASE 81 IU/L (46-116); BLOOD UREA NITROGEN 19 MG/DL (7-18); BUN/CREATININE RATIO 17.8 (10.0-20.0); CALCIUM 9.5 MG/DL (8.5-10.1); CHLORIDE 105 MMOL/L (99-107); CREATININE 1.07 MG/DL (0.60-1.10); PRE OP ALT 40 U/L (30-65); PRE OP ANION GAP 9 (8-16); PRE OP AST 26 U/L (10-37); PRE OP BILIRUB, TOTAL 0.5 MG/DL (0.0-1.0); PRE OP GLUCOSE 92 MG/DL (70-104); PRE OP POTASSIUM 4.1 MMOL/L (3.4-5.1); PRE OP SODIUM 141 MMOL/L (135-145); TOTAL CARBON DIOXIDE 27.2 MMOL/L (24-32); eGFR 71 ML/MIN
[~2024-05-23] VITALS: Ht 177.8 cm; Wt 92.0 kg
[2024-05-23] VITALS (13 sets, daily range): BP systolic 94–154; BP diastolic 53–97; PULSE 63–88; RESP 11–22; TEMP 97.5; O2SAT 95–99
[2024-05-23] MEDS: VANCOMYCIN 1,500MG in normal saline IV soln 300 ML IV ONE (05:30)
[~2024-05-23 06:53] MED LIST changes: -ACET325T58 PO; +ATOR20TA PO; -METO5TAB85 PO; +ringers solution, lacted 1,000 ML IV SCH
[2024-05-23] MEDS ORDERED: bisacodyl 10mg suppository rectal RC PRN (07:15)
[2024-05-23] MEDS ORDERED: HYDROcodone/acetaminophen 10/325mg tab PO PRN ×2 (07:15)
[2024-05-23] MEDS ORDERED: HYDROmorphone 1 mg/ml syringe IV PRN (07:15)
[2024-05-23] MEDS ORDERED: magnesium hydroxide 30ml (MOM) UD suspension PO PRN (07:15)
[2024-05-23] MEDS ORDERED: diphenhydrAMINE 25mg capsule PO PRN ×2 (07:15)
[2024-05-23] MEDS ORDERED: naloxone 0.4 mg/ml inj IV PRN (07:15)
[2024-05-23] MEDS ORDERED: HYDROmorphone inj. 0.5 MG/0.5 ML DISP.SYRIN IV PRN (07:15)
[2024-05-23] MEDS ORDERED: potassium cl 20mEq in 1/2 NS 1,000 ML IV SCH (07:15)
[2024-05-23] MEDS ORDERED: acetaminophen 325mg tablet PO PRN (07:15)
[2024-05-23] MEDS ORDERED: ondansetron/PF 4mg/2ml inj IV PRN ×2 (07:15→12:50)
[2024-05-23] MEDS: tranexamic acid inj. 1,000 MG in normal saline IV soln 100ML IV ONE (07:21)
[2024-05-23 07:58] LABS: BASOPHILS % (AUTO) 0.6 % (0-1); EOSINOPHILS # (AUTO) 0.2 X10'3 (0-0.9); EOSINOPHILS % (AUTO) 3.3 % (0-6); LYMPHOCYTES # (AUTO) 2.1 X10'3 (1.1-4.8); LYMPHOCYTES % (AUTO) 30.9 % (21-51); MEAN CORPUSCULAR HEMOGLOBIN 27.9 PG (27.0-31.0); MEAN CORPUSCULAR HGB CONC 33.5 g/dL (33.0-36.5); MEAN CORPUSCULAR VOLUME 83.3 FL (78-98); MEAN PLATELET VOLUME 6.5 FL (7.4-10.4); MONOCYTES # (AUTO) 0.7 X10'3 (0-0.9); MONOCYTES % (AUTO) 9.9 % (2-12); NEUTROPHILS # (AUTO) 3.7 X10'3 (1.8-7.7); NEUTROPHILS % (AUTO) 55.3 % (42-75); PRE OP HEMATOCRIT 45.9 % (42.0-52.0); PRE OP HEMOGLOBIN 15.4 g/dL (14.0-17.9); PRE OP PLATELET COUNT 228 X10'3 (140-440); PRE OP WHITE BLOOD COUNT 6.7 10'3 (4.8-10.8); RED BLOOD COUNT 5.51 X10'6 (4.70-6.10); RED CELL DISTRIBUTION WIDTH 13.9 % (11.5-14.5)
[2024-05-23] MEDS ORDERED: multivitamins, therapeutics tablet PO SCH (08:00)
[2024-05-23] MEDS ORDERED: losartan 50mg tablet PO SCH (08:00)
[2024-05-23] MEDS ORDERED: gabapentin 300mg capsule PO SCH (08:00)
[2024-05-23] MEDS ORDERED: atorvastatin 20mg tablet PO SCH (08:00)
[2024-05-23] MEDS ORDERED: ascorbic acid 500mg tablet PO SCH (08:00)
[2024-05-23] MEDS: oxyCODONE SR 10mg (sust. release) tab -2 tabs (20mg) PO ONE (08:06)
[2024-05-23] MEDS: acetaminophen 325mg tablet PO ONE (08:06)
[2024-05-23] MEDS: metoclopramide 5 mg/ml inj IV ONE (08:07)
[2024-05-23] MEDS: gabapentin 300mg capsule PO ONE (08:07)
[2024-05-23] MEDS: celeCOXIB 100mg capsule PO ONE (08:07)
[2024-05-23] MEDS: famotidine 20mg tablet PO ONE (08:07)
[2024-05-23 08:11] LABS: ALBUMIN 3.9 G/DL (3.4-5.0); ALBUMIN/GLOBULIN RATIO 1.2 (1.1-1.5); ALKALINE PHOSPHATASE 66 IU/L (46-116); BLOOD UREA NITROGEN 15 MG/DL (7-18); BUN/CREATININE RATIO 16.7 (10.0-20.0); CALCIUM 8.9 MG/DL (8.5-10.1); CHLORIDE 104 MMOL/L (99-107); PRE OP ALT 38 U/L (30-65); PRE OP ANION GAP 9 (8-16); PRE OP AST 25 U/L (10-37); PRE OP BILIRUB, TOTAL 0.6 MG/DL (0.0-1.0); PRE OP GLUCOSE 97 MG/DL (70-104); PRE OP POTASSIUM 3.8 MMOL/L (3.4-5.1); PRE OP SODIUM 139 MMOL/L (135-145); TOTAL CARBON DIOXIDE 25.6 MMOL/L (24-32); TOTAL PROTEIN 7.2 G/DL (6.4-8.2); eCRCL 91 ML/MIN; eGFR 86 ML/MIN
[2024-05-23] MEDS ORDERED: aspirin 325mg tablet PO SCH (08:30)
[2024-05-23] MEDS ORDERED: NORMAL SALINE IV ONE (10:00)
[2024-05-23] MEDS ORDERED: TRANEXAMIC ACID IV ONE (10:00)
[2024-05-23] MEDS ORDERED: vancomycin 1,000mg inj ONE (10:09)
[2024-05-23] MEDS ORDERED: BUPIVACAINE/MELOXICAM 14 ML VIAL IL ONE (10:09)
[2024-05-23] MEDS ORDERED: fentaNYL/PF 50MCG/1 ML 2ML syringe ONE (10:12)
[2024-05-23] MEDS ORDERED: MIDAZolam 1 MG/ML 5ML VIAL ONE (10:14)
[2024-05-23] MEDS ORDERED: BUPIVAcaine/dex-water/PF 7.5 mg/ml 2ml ampul ONE (10:29)
[2024-05-23] MEDS: BUPIVACAINE/MELOXICAM 14 ML VIAL IL ONE (11:32)
[2024-05-23] MEDS ORDERED: ROPIVAcaine 0.5% (5mg/ml) 30ml vial ONE (11:46)
[2024-05-23] MEDS ORDERED: propofol inj 20 ML IV ONE (12:15)
[2024-05-23] MEDS ORDERED: proCHLORperazine 10 MG/2 ml inj IV PRN (12:50)
[2024-05-23] MEDS ORDERED: meperidine/PF 25mg/ml syringe IV PRN ×3 (12:50)
[2024-05-23] MEDS ORDERED: ringers solution, lacted 1,000 ML IV SCH (12:50)
[2024-05-23] MEDS ORDERED: morphine 2 MG/ML inj. syringe IV PRN (12:50)
[2024-05-23] MEDS ORDERED: morphine 4 MG/ML inj SYRINge IV PRN (12:50)
[2024-05-23] MEDS ORDERED: cefazolin 2gm/D5W 100mL 100 ML IV SCH (16:00)
[2024-05-23] MEDS ORDERED: VANCOMYCIN 1,500MG inj. 1,500 MG in normal saline 500ml IV soln 300 ML IV ONE (20:00)
[2024-05-23] MEDS ORDERED: sennosides 8.6mg tablet PO SCH (21:00)
[2024-05-24] MEDS ORDERED: levoTHYROXINE 112mcg tablet PO SCH (07:00)
[2024-05-24] MEDS ORDERED: celeCOXIB 100mg capsule PO SCH (20:00)
== END 2024-05-23 15:17 | disposition home or self-care (01) ==
LOC: PRE-OP 06:53
PROVIDERS: ATTEND Orthopaedic Surgery
DX: M17.12 Unilateral primary osteoarthritis, left knee (principal); G89.18 Other acute postprocedural pain; M25.762 Osteophyte, left knee; I10 Essential (primary) hypertension; E03.9 Hypothyroidism, unspecified; Z96.651 Presence of right artificial knee joint; Z79.82 Long term (current) use of aspirin; Z79.890 Hormone replacement therapy; Z79.899 Other long term (current) drug therapy; Z98.890 Other specified postprocedural states; Z88.0 Allergy status to penicillin; Z91.010 Allergy to peanuts; Z91.030 Bee allergy status; Z91.040 Latex allergy status
CPT/HCPCS: 27447; 36415; 64447; 73560; 80053; 85025; 87081; 97161; 97530; C1713; C1776; J2250; J2704; J2765; J2795; J3010; J3370; J3480; J3490; J7030; J7040; J7120; Z7506; Z7508; Z7512; A4215; A4618; A7000; J0690; J1170

== ENCOUNTER 2024-10-16 09:51 | Outpatient (CLI) | payer BC ==
[~2024-10-16 09:51] MED LIST changes: -ringers solution, lacted 1,000 ML IV SCH
[2024-10-16 10:20] LABS: BASOPHILS % (AUTO) 0.6 % (0-1); EOSINOPHILS # (AUTO) 0.3 X10'3 (0-0.9); EOSINOPHILS % (AUTO) 4.5 % (0-6); HEMOGLOBIN 16.4 g/dl (14.0-17.9); LYMPHOCYTES # (AUTO) 1.8 X10'3 (1.1-4.8); LYMPHOCYTES % (AUTO) 27.8 % (21-51); MEAN CORPUSCULAR HEMOGLOBIN 27.2 PG (27.0-31.0); MEAN CORPUSCULAR HGB CONC 33.5 g/dL (33.0-36.5); MEAN PLATELET VOLUME 6.7 FL (7.4-10.4); MONOCYTES # (AUTO) 0.6 X10'3 (0-0.9); MONOCYTES % (AUTO) 9.4 % (2-12); NEUTROPHILS # (AUTO) 3.8 X10'3 (1.8-7.7); NEUTROPHILS % (AUTO) 57.7 % (42-75); PLATELET COUNT 244 X10'3 (140-440); RED BLOOD COUNT 6.05 X10'6 (4.70-6.10); RED CELL DISTRIBUTION WIDTH 13.9 % (11.5-14.5); WHITE BLOOD COUNT 6.5 X10'3 (4.5-11.0)
[2024-10-16 10:46] LABS: ALANINE AMINOTRANSFERASE 52 U/L (12-78); ALBUMIN 4.1 G/DL (3.4-5.0); ALBUMIN/GLOBULIN RATIO 1.2 (1.1-1.5); ALKALINE PHOSPHATASE 85 IU/L (46-116); ANION GAP 7 (8-16); ASPARTATE AMINO TRANSFERASE 34 U/L (10-37); BILIRUBIN,TOTAL 0.5 MG/DL (0.1-1.0); BLOOD UREA NITROGEN 15 MG/DL (7-18); BUN/CREATININE RATIO 14.6 (10.0-20.0); CALCIUM 9.2 MG/DL (8.5-10.1); CHLORIDE 106 MMOL/L (99-107); CHOL/HDL RATIO 3.7 (0.00-4.99); CHOLESTEROL 179 MG/DL (0-200); CREATININE 1.03 MG/DL (0.60-1.10); FREE T4 (FREE THYROXINE) 0.84 NG/DL (0.73-1.40); GLUCOSE 90 MG/DL (70-104); HDL CHOLESTEROL 48 MG/DL (35-60); LDL CHOLESTEROL 117 MG/DL (50-100); POTASSIUM 4.4 MMOL/L (3.5-5.1); SODIUM 141 MMOL/L (135-145); THYROID STIMULATING HORMONE 1.07 ulU/ml (0.34-4.50); TOTAL CARBON DIOXIDE 27.9 MMOL/L (24-32); TOTAL PROTEIN 7.5 G/DL (6.4-8.2); TRIGLYCERIDES 81 MG/DL (20-135); eGFR 74 ML/MIN
[2024-10-17 11:10] LABS: PROSTATE SPECIFIC AG, SERUM 0.6 ng/mL (0.0-4.0); THIIODOTHRONINE, FREE, SERUM 3.7 pg/mL (2.0-4.4)
== END 2024-10-16 23:59 | disposition home or self-care (01) ==
LOC: LAB 09:51
PROVIDERS: ATTEND Family Medicine
DX: Z11.59 Encounter for screening for other viral diseases (principal); I10 Essential (primary) hypertension; E03.9 Hypothyroidism, unspecified; E78.5 Hyperlipidemia, unspecified; N42.9 Disorder of prostate, unspecified
CPT/HCPCS: 36415; 80053; 80061; 84153; 84154; 84439; 84443; 84481; 85025; 86803; 87522